=== PATIENT | male | born 1950 | race Caucasian/White ===

== ENCOUNTER 2017-12-04 17:58 | Inpatient (IN) ==
[2017-12-05] MEDS: *HR* Metformin 500 MG TABLET PO SCH (17:24)
[2017-12-05] MEDS ORDERED: *HR* Dextrose 50 % in Water (Syg) 50 ML SYRINGE IVP PRN (17:45)
[2017-12-05] MEDS ORDERED: Dextrose Gel 15 GM/37.5 ML TUBE PO PRN ×2 (17:45)
[2017-12-05] MEDS ORDERED: D5% in Water 1,000 ML IVC PRN (17:45)
[2017-12-05] MEDS: *HR* OxyCODONE/APAP 7.5/325 TABLET PO PRN (18:50)
[2017-12-05] MEDS: amLODIPine 5 MG TABLET PO SCH (21:55)
[2017-12-05] MEDS: Gabapentin 400 MG CAPSULE PO SCH (21:56)
[2017-12-05] MEDS: Insulin LISPRO 300 UNITS/3 ML VIAL SQ SCH (21:58)
[2017-12-05] MEDS: DOXYLAMINE 25 MG PO SCH (22:02)
[2017-12-06] MEDS: *HR* OxyCODONE/APAP 7.5/325 TABLET PO PRN ×2 (03:23→18:31)
[2017-12-06] MEDS: Multivit/Ca/Min/Fe/FA 1 TAB TABLET PO SCH (08:33)
[2017-12-06] MEDS: *HR* Metformin 500 MG TABLET PO SCH ×2 (08:33→16:56)
[2017-12-06] MEDS: Metoprolol XL (24 HR) Succ 50 MG TAB.ER.24H PO SCH (08:33)
[2017-12-06] MEDS: Gabapentin 400 MG CAPSULE PO SCH ×3 (08:34→20:33)
[2017-12-06] MEDS: OCUVITE PO SCH (08:35)
[2017-12-06] MEDS: EXENATIDE SQ SCH (08:35)
[2017-12-06] MEDS: Psyllium 1 PACKET POWD.PACK PO SCH (08:36)
[2017-12-06] MEDS: FISH OIL PO SCH (08:37)
[2017-12-06] MEDS: OMEGA PO SCH (08:37)
[2017-12-06] MEDS: Insulin LISPRO 300 UNITS/3 ML VIAL SQ SCH ×4 (08:40→20:34)
[2017-12-06] MEDS ORDERED: Aspirin Enteric Coated 325 MG Tablet PO SCH (09:00)
[2017-12-06] MEDS ORDERED: *HR* FentaNYL PATCH 12 MCG PATCH TD SCH (15:45)
--- NOTE | 2017-12-06 15:53 | Internal Med History&Physical ---
Date of Encounter: 12/06/17 Time of Encounter: 15:00 Assessment and Plan (1) Status post lumbar spinal fusion Current visit: No Status: Acute Continue PT and OT ongoing intervention. (2) Anemia Current visit: Yes Status: Acute Will check anemia testing in a.m. Qualifiers: Anemia type: unspecified type Qualified Code(s): D64.9 - Anemia, unspecified (3) DM type 2 (diabetes mellitus, type 2) Current visit: Yes Status: Chronic Qualifiers: Diabetes mellitus manager long term care insulin use: without nursing home use Diabetes mellitus complication status: without complication Qualified Code(s): E11.9 - Type 2 diabetes mellitus without complications (4) Dysphagia Current visit: Yes Status: Acute Will ask for speech/swallowing therapy evaluation. Qualifiers: Dysphagia type: unspecified Qualified Code(s): R13.10 - Dysphagia, unspecified (5) HTN (hypertension) Current visit: No Status: Chronic Continue Cozaar, Norvasc, and Toprol with blood pressure monitoring. Qualifiers: Hypertension type: essential hypertension Qualified Code(s): I10 - Essential (primary) hypertension Internal Medicine - H&P: HPI Chief complaint: Lumbar surgery Admitted From: Hospital to Hospital Transfer Plans for Post Hospital Care: Home History of present illness: Mr. Herrera is a 67 year old male who was transferred to [facility] swing bed after a December 01 hospitalization at [facility] where laminectomy and lumbar interbody fusion L2-L5 was performed. He had confusion and fluctuating blood pressures postoperatively. He was stabilized and admitted to [facility] swing bed for ongoing care needs. His orthopedic history is significant for left total hip replacement ~2004, left total knee replacement 1999, right shoulder surgery, bilateral carpal tunnel surgery, and foot surgery. He denies gout or other definite bone joint or muscle disorders. Past Med Surg Social Fam HX - Past Medical History Medical history: arthritis, diabetes, GERD, hyperlipidemia, hypertension, TIA Additional medical history: Osteoporosis. Lumbar Disc Dx and radiculopathy. Diverticulitis. BCC. Stroke 2017 left side Psychiatric history: no psych history - Past Surgical History Surgical History: hip replacement, knee replacement, orthopedic, other Additional surgical history: left hip replacement 2009. left knee replacement 1999. right foot bone chip 2004. left rotator cuff repaired 2005. mohs procedure performed [facility] right lateral cheek/right nasal sidewall 05/08/16 - Social History Smoking Status: Unknown if ever smoked Smokeless Tobacco Status: No Alcohol use: none Drug use: none - Family History Father Living Status: Mother Living Status: Hx Family Endocrine Disorder: Yes Internal Medicine - H&P: Meds Amlodipine Besylate 10 mg PO HS 05/14/16 [History] Aspirin [Ecotrin] 325 mg PO DAILY 05/14/16 [History] Atorvastatin Calcium 80 mg PO HS 05/14/16 [History] Cyclobenzaprine [Flexeril] 10 mg PO TID PRN 05/14/16 [History] Docusate [Colace] 100 mg PO BID PRN 05/14/16 [History] Doxylamine Succinate [Sleep Aid] 25 mg PO HS 05/14/16 [History] Exenatide Microspheres [Bydureon] 2 mg SQ SA 05/14/16 [History] Losartan Potassium [Cozaar] 100 mg PO DAILY 05/14/16 [History] Meloxicam [Mobic] 15 mg PO DAILY 05/14/16 [History] Metformin HCl [Glucophage] 1,000 mg PO BID 05/14/16 [History] Metoprolol XL (24 HR) Succ [Toprol Xl] 50 mg PO DAILY 05/14/16 [History] Multivitamin [Multi-Day Vitamins] 1 tab PO DAILY 05/14/16 [History] Omeprazole [PriLOSEC] 20 mg PO DAILY 05/14/16 [History] Oxycodone HCl/Acetaminophen [Percocet 7.5-325 mg Tablet] 1 tab PO Q6H PRN [History] Psyllium Husk [Fiber] 0.52 gm PO DAILY 05/14/16 [History] Vit C/Vit E/Lutein/Min/[place]-3 [Ocuvite Softgel] 1 tab PO DAILY 05/14/16 [ History] Amitriptyline [Elavil] 25 mg PO HS 12/01/17 [History] Calcium Carbonate [Calcium] 1,200 mg PO DAILY 12/01/17 [History] Gabapentin [Neurontin] 800 mg PO TID 12/01/17 [History] [place]-3/Dha/Epa/Fish Oil [Fish Oil 1,000 mg Softgel] 1 cap PO DAILY 12/01/17 [ History] OxyCODONE/APAP 7.5/325 [Percocet 7.5/325 MG] 1 each PO Q6HR PRN 7 Days #28 tablet 12/04/17 [Rx] 3 Allergy/AdvReac Type Severity Reaction Status Date / Time No Known Allergies Allergy Verified 12/01/17 07:57 All Systems PM: A 10-system review of systems was performed and is negative for pertinent findings except as documented above in the HPI. Review of systems: Gen.: His weight has increased from 88.961 kg in 06/22/2017 to 93.8 kg at present. Cardiovascular: He has history of hypertension but no VT heart failure angina DVT or pulmonary embolus Respiratory: He is a lifelong nonsmoker and has no known chronic lung disease GI: He has no known disorders of liver gallbladder or exocrine pancreas : No history of hematuria dysuria or kidney stones Neurologic: He had a "TIA" May 2017 and was hospitalized overnight at [facility]. Evaluation included carotid Doppler studies echocardiogram head CT and MRI. No significant pathology was seen on the studies. He was discharged home on antiplatelet regimen. His reports he has never had full recovery and has persistent slight impairment of speech, swallowing, memory, and walking. He does not use a cane or walker routinely. He has not had seizures. Endocrine: He was diagnosed with DM 2 approximately 2002. He denies thyroid disease or hyperlipidemia Hematology/oncology: He has had anemia on labs since May 2017 when he was started on aspirin therapy following his TIA. He denies internal malignancies Psychiatric: He denies anxiety depression or other mental health issues Musko skeletal: As per history of present illness - Constitutional Vitals: Temp Pulse Resp BP Pulse Ox 98.0 F 114 16 128/73 95 12/06/17 06:56 12/06/17 06:56 12/06/17 06:56 12/06/17 06:56 12/06/17 06:56 Exam: Gen.: He is a well-developed well-nourished male resting lying in bed who appears in mild to moderate pain. He has frequent body position changes and grimaces. HEENT: Head is atraumatic and normal cephalic. Eyes: EOMI. There is no scleral icterus. Mouth: Mucosa is moist. Neck: Supple and nontender. There is no thyromegaly or adenopathy noted. Heart: Regular without murmurs gallops or ectopics. Rate is approximately 104/ m. Lungs: No wheezes or crackles are heard. Abdomen: Soft and nontender. No masses or guarding noted. Extremities: There is no cyanosis. He is wearing PLACIDO hose which I did not remove. There is no pitting edema of his lower legs. Neurologic: Mental status: He is able to answer questions with appropriate answers. He has occasional word searching during conversation. Cranial nerves : Smile is symmetric. Forehead wrinkles bilaterally. Tongue protrudes midline. EOMI. Motor: He has difficulty raising his arms off the bed complaints of shoulder pain. He has some hyperextension of fingers on his right hand. Cerebellar: Finger to nose is intact bilaterally. Back: He has surgical dressing over lower midline incision site. No significant erythema or drainage is noted. Skin: Warm and dry.
[2017-12-06] MEDS: Aspirin Enteric Coated 81 MG Tablet PO SCH (16:56)
[2017-12-06] MEDS: Methyl Salicylate/Menthol 28 GM TUBE TP SCH (16:59)
[2017-12-06] MEDS: amLODIPine 5 MG TABLET PO SCH (20:33)
[2017-12-06] MEDS: DOXYLAMINE 25 MG PO SCH (20:39)
[2017-12-07 06:50] LABS: Basophils % 0.2 %; Eosinophils # 0.5 K/mcL (0.0-0.6); Hematocrit 27.2 % (37.5-50.1); Hemoglobin 8.9 g/dL (12.9-16.9); Immature Granulocytes % 0.4 % (0-4); Lymphocytes # 0.9 K/mcL (0.6-4.6); Lymphocytes % 10.5 %; Mean Corpuscular HGB Conc 32.7 g/dL (31.6-35.5); Mean Corpuscular Hemoglobin 29.3 pg (28.0-33.3); Mean Corpuscular Volume 89.5 fL (83.0-100.0); Mean Platelet Volume 9.6 fL (9.4-12.4); Monocytes # 0.8 K/mcL (0.0-1.3); Monocytes % 9.5 %; Platelet Count 245 K/mcL (140-400); Red Blood Count 3.04 M/mcL (4.19-5.50); Red Cell Distribution Width 15.3 % (11.5-14.5); Segmented Neutrophils % 73.4 %
[2017-12-07 07:20] LABS: Alanine Aminotransferase 93 Units/L (7-52); Albumin 3.2 g/dL (3.5-5.7); Albumin/Globulin Ratio 0.9 (1.1-2.2); Alkaline Phosphatase 84 Units/L (34-104); Aspartate Amino Transferase 83 Units/L (13-39); BUN/Creatinine Ratio 20 (6-26); Bilirubin,Total 0.6 mg/dL (0.3-1.0); Blood Urea Nitrogen 15 mg/dL (8-23); Calcium 9.2 mg/dL (8.6-10.3); Carbon Dioxide 27 mEq/L (23-29); Chloride 98 mEq/L (98-107); Globulin 3.4 g/dL (2.4-3.5); Glucose 220 mg/dL (70-105); Magnesium 1.9 mg/dL (1.6-2.6); Osmolality,Calculated 288 (280-300); Potassium 3.3 mEq/L (3.5-5.1); Sodium 135 mEq/L (136-145); Total Protein 6.6 g/dL (6.4-8.9); Uric Acid 4.1 mg/dL (2.3-7.6); eGFR For African Americans > 60 (> 60); eGFR For Non-African Americans > 60 (> 60)
[2017-12-07] MEDS: Gabapentin 400 MG CAPSULE PO SCH ×3 (08:29→20:45)
[2017-12-07] MEDS: *HR* OxyCODONE/APAP 7.5/325 TABLET PO PRN ×2 (08:30→18:03)
[2017-12-07] MEDS: *HR* Metformin 500 MG TABLET PO SCH ×2 (08:30→18:03)
[2017-12-07] MEDS: Multivit/Ca/Min/Fe/FA 1 TAB TABLET PO SCH (08:30)
[2017-12-07] MEDS: Aspirin Enteric Coated 81 MG Tablet PO SCH (08:31)
[2017-12-07] MEDS: Psyllium 1 PACKET POWD.PACK PO SCH (08:31)
[2017-12-07] MEDS: Metoprolol XL (24 HR) Succ 50 MG TAB.ER.24H PO SCH (08:31)
[2017-12-07] MEDS: Insulin LISPRO 300 UNITS/3 ML VIAL SQ SCH ×3 (08:43→18:04)
[2017-12-07 10:21] LABS: % Iron Saturation 4 % (20-55); Iron 11 mcg/dL (65-175); Transferrin 187 mg/dL (203-362)
[2017-12-07 10:41] LABS: Ferritin 167 ng/mL (20-250)
[2017-12-07 10:46] LABS: Folate 20.7 ng/mL (3.0-16.0)
[2017-12-07] MEDS: OMEGA PO SCH (11:37)
[2017-12-07] MEDS: OCUVITE PO SCH (11:37)
[2017-12-07] MEDS: FISH OIL PO SCH (11:37)
[2017-12-07] MEDS: Methyl Salicylate/Menthol 28 GM TUBE TP SCH (11:46)
--- NOTE | 2017-12-07 15:15 | Internal Med Progress Note ---
Date of Encounter: 12/07/17 Time of Encounter: 15:05 - Assessment and plan (1) Status post lumbar spinal fusion Current Visit: No Status: Acute Assessment and plan: December 07. Continue therapy interventions. Continue present analgesic regimen. (2) Anemia Current Visit: Yes Status: Acute Assessment and plan: December 07. Anemia testing showed iron 11, transferrin saturation 4%, transferrin 187, ferritin 167, B12 440, and folate 20.7. Will order oral ferrous sulfate with vitamin C. Qualifiers: Anemia type: unspecified type Qualified Code(s): D64.9 - Anemia, unspecified (3) DM type 2 (diabetes mellitus, type 2) Current Visit: Yes Status: Chronic Assessment and plan: December 07. Hemoglobin A1c was 8.7% on 11/25/2017. Continue Glucophage and Accu- Cheks with SSI. Qualifiers: Diabetes mellitus compliance auditor insulin use: without nursing home use Diabetes mellitus complication status: without complication Qualified Code(s): E11.9 - Type 2 diabetes mellitus without complications (4) Dysphagia Current Visit: Yes Status: Acute Assessment and plan: December 07. Speech/swallowing therapy evaluation ordered. Qualifiers: Dysphagia type: unspecified Qualified Code(s): R13.10 - Dysphagia, unspecified (5) HTN (hypertension) Current Visit: No Status: Chronic Assessment and plan: December 07. Blood pressure stable. Continue Cozaar, Norvasc, and Toprol. Qualifiers: Hypertension type: essential hypertension Qualified Code(s): I10 - Essential (primary) hypertension - Subjective Interval history: December 07. He has no new complaints. He states his pain has significantly lessened. - Constitutional Vitals: Temp Pulse Resp BP Pulse Ox 98.1 F 55 16 141/85 92 12/07/17 06:57 12/07/17 06:57 12/07/17 06:57 12/07/17 06:57 12/07/17 06:57 Exam: He is sitting in a chair at bedside resting comfortably. He appears in no acute distress. His affect is cheerful. I reviewed his medications and lab results. Internal Medicine: Result - Labs CBC & Chem 7: 12/07/17 06:03 12/07/17 06:03 Labs: Short CBC 12/07/17 Range/Units 06:03 WBC 8.1 (4.3-11.1) K/mcL Hgb 8.9 L (12.9-16.9) g/dL Hct 27.2 L (37.5-50.1) % Plt Count 245 (140-400) K/mcL Neutrophils # 6.0 (1.6-8.9) K/mcL BMP 12/07/17 06:03 Sodium 135 L Potassium 3.3 L Chloride 98 Carbon Dioxide 27 BUN 15 Creatinine 0.75 Glucose 220 H Calcium 9.2 Liver Function 12/07/17 Range/Units 06:03 Total Bilirubin 0.6 (0.3-1.0) mg/dL AST 83 H (13-39) Units/L ALT 93 H (7-52) Units/L Alkaline Phosphatase 84 (34-104) Units/L Albumin 3.2 L (3.5-5.7) g/dL - VTE Documentation of Mechanical Device: Graduated compression elastic hosiery Consult Discharge Plan - Plan Referrals: Cherelle Li [Primary Care Provider] - 1 week
[2017-12-07] MEDS: DOXYLAMINE 25 MG PO SCH (20:45)
[2017-12-07] MEDS: amLODIPine 5 MG TABLET PO SCH (20:45)
[2017-12-08] MEDS: Insulin LISPRO 300 UNITS/3 ML VIAL SQ SCH ×5 (06:26→22:33)
[2017-12-08] MEDS: Ascorbic Acid 500 MG TABLET PO SCH (06:28)
[2017-12-08] MEDS: *HR* Metformin 500 MG TABLET PO SCH ×2 (08:31→16:50)
[2017-12-08] MEDS: Metoprolol XL (24 HR) Succ 50 MG TAB.ER.24H PO SCH (08:32)
[2017-12-08] MEDS: Aspirin Enteric Coated 81 MG Tablet PO SCH (08:32)
[2017-12-08] MEDS: Psyllium 1 PACKET POWD.PACK PO SCH (08:33)
[2017-12-08] MEDS: Multivit/Ca/Min/Fe/FA 1 TAB TABLET PO SCH (08:33)
[2017-12-08] MEDS: *HR* OxyCODONE/APAP 7.5/325 TABLET PO PRN ×3 (08:33→22:31)
[2017-12-08] MEDS: Gabapentin 400 MG CAPSULE PO SCH ×3 (08:33→22:32)
[2017-12-08] MEDS: Methyl Salicylate/Menthol 28 GM TUBE TP SCH (12:14)
[2017-12-08] MEDS: OCUVITE PO SCH (16:52)
[2017-12-08] MEDS: FISH OIL PO SCH (16:52)
[2017-12-08] MEDS: OMEGA PO SCH (16:52)
--- NOTE | 2017-12-08 18:25 | Internal Med Progress Note ---
Date of Encounter: 12/08/17 Time of Encounter: 18:15 - Assessment and plan (1) Status post lumbar spinal fusion Current Visit: No Status: Acute Assessment and plan: December 07. Continue therapy interventions. Continue present analgesic regimen. July 10. Will increase Duragesic to 25 g/hour patch. Continue analgesic regimen otherwise as at present. (2) Anemia Current Visit: Yes Status: Acute Assessment and plan: December 07. Anemia testing showed iron 11, transferrin saturation 4%, transferrin 187, ferritin 167, B12 440, and folate 20.7. Will order oral ferrous sulfate with vitamin C. Qualifiers: Anemia type: unspecified type Qualified Code(s): D64.9 - Anemia, unspecified (3) DM type 2 (diabetes mellitus, type 2) Current Visit: Yes Status: Chronic Assessment and plan: December 07. Hemoglobin A1c was 8.7% on 11/25/2017. Continue Glucophage and Accu- Cheks with SSI. December 08. Blood sugars are above desirable range. Will add Amaryl. Qualifiers: Diabetes mellitus longterm insulin use: without longterm use Diabetes mellitus complication status: without complication Qualified Code(s): E11.9 - Type 2 diabetes mellitus without complications (4) Dysphagia Current Visit: Yes Status: Acute Assessment and plan: December 07. Speech/swallowing therapy evaluation ordered. December 08. Swallowing therapy recommended mechanical soft diet with thin liquids. Qualifiers: Dysphagia type: unspecified Qualified Code(s): R13.10 - Dysphagia, unspecified (5) HTN (hypertension) Current Visit: No Status: Chronic Assessment and plan: December 07. Blood pressure stable. Continue Cozaar, Norvasc, and Toprol. Qualifiers: Hypertension type: essential hypertension Qualified Code(s): I10 - Essential (primary) hypertension - Subjective Interval history: December 07. He has no new complaints. He states his pain has significantly lessened. July 10. He has no new complaints. He states his pain has slightly increased. - Constitutional Vitals: Temp Pulse Resp BP Pulse Ox 99.8 F H 118 16 143/87 95 12/08/17 06:00 12/08/17 06:00 12/08/17 06:00 12/08/17 06:00 12/08/17 06:00 Exam: He is sitting in a chair at bedside and appears in mild discomfort. His affect is overall cheerful. I reviewed his medications. I reviewed pertinent lab results with him and his . Internal Medicine: Result - Labs CBC & Chem 7: 12/07/17 06:03 12/07/17 06:03 - VTE Documentation of Mechanical Device: Graduated compression elastic hosiery Consult Discharge Plan - Plan Referrals: Cherelle Li [Primary Care Provider] - 1 week
[2017-12-08] MEDS: amLODIPine 5 MG TABLET PO SCH (22:32)
[2017-12-08] MEDS: DOXYLAMINE 25 MG PO SCH (22:34)
[2017-12-08] MEDS: *HR* FentaNYL PATCH 25 MCG PATCH TD SCH (22:38)
[2017-12-09 05:58] LABS: Basophils % 0.3 %; Eosinophils # 0.6 K/mcL (0.0-0.6); Eosinophils % 8.1 %; Hemoglobin 8.6 g/dL (12.9-16.9); Immature Granulocytes % 0.7 % (0-4); Lymphocytes # 0.9 K/mcL (0.6-4.6); Lymphocytes % 13.8 %; Mean Corpuscular HGB Conc 31.9 g/dL (31.6-35.5); Mean Corpuscular Hemoglobin 28.8 pg (28.0-33.3); Mean Corpuscular Volume 90.3 fL (83.0-100.0); Mean Platelet Volume 9.4 fL (9.4-12.4); Monocytes # 0.8 K/mcL (0.0-1.3); Monocytes % 11.2 %; Neutrophils # 4.5 K/mcL (1.6-8.9); Platelet Count 281 K/mcL (140-400); Red Blood Count 2.99 M/mcL (4.19-5.50); Red Cell Distribution Width 15.2 % (11.5-14.5); Segmented Neutrophils % 65.9 %
[2017-12-09 06:17] LABS: BUN/Creatinine Ratio 24 (6-26); Blood Urea Nitrogen 20 mg/dL (8-23); Calcium 8.9 mg/dL (8.6-10.3); Carbon Dioxide 28 mEq/L (23-29); Chloride 99 mEq/L (98-107); Glucose 223 mg/dL (70-105); Osmolality,Calculated 290 (280-300); Potassium 3.7 mEq/L (3.5-5.1); Sodium 135 mEq/L (136-145); eGFR For African Americans > 60 (> 60); eGFR For Non-African Americans > 60 (> 60)
[2017-12-09] MEDS: Ascorbic Acid 500 MG TABLET PO SCH (06:39)
[2017-12-09] MEDS: Insulin LISPRO 300 UNITS/3 ML VIAL SQ SCH ×4 (08:48→21:34)
[2017-12-09] MEDS: Aspirin Enteric Coated 81 MG Tablet PO SCH (08:50)
[2017-12-09] MEDS: Metoprolol XL (24 HR) Succ 50 MG TAB.ER.24H PO SCH (08:50)
[2017-12-09] MEDS: *HR* OxyCODONE/APAP 7.5/325 TABLET PO PRN (08:50)
[2017-12-09] MEDS: Gabapentin 400 MG CAPSULE PO SCH ×3 (08:50→21:33)
[2017-12-09] MEDS: Psyllium 1 PACKET POWD.PACK PO SCH (08:50)
[2017-12-09] MEDS: Multivit/Ca/Min/Fe/FA 1 TAB TABLET PO SCH (08:50)
[2017-12-09] MEDS: *HR* Glimepiride 2 MG TABLET PO SCH (08:50)
[2017-12-09] MEDS: *HR* Metformin 500 MG TABLET PO SCH ×2 (08:50→17:31)
[2017-12-09] MEDS: Methyl Salicylate/Menthol 28 GM TUBE TP SCH (08:51)
[2017-12-09] MEDS: OMEGA PO SCH (09:05)
[2017-12-09] MEDS: OCUVITE PO SCH (09:05)
[2017-12-09] MEDS: FISH OIL PO SCH (09:05)
[2017-12-09] MEDS: amLODIPine 5 MG TABLET PO SCH (21:31)
[2017-12-09] MEDS: DOXYLAMINE 25 MG PO SCH (21:36)
[2017-12-10] MEDS: Ascorbic Acid 500 MG TABLET PO SCH (06:28)
[2017-12-10] MEDS: *HR* OxyCODONE/APAP 7.5/325 TABLET PO PRN ×3 (06:28→21:32)
[2017-12-10] MEDS: Multivit/Ca/Min/Fe/FA 1 TAB TABLET PO SCH (09:23)
[2017-12-10] MEDS: *HR* Metformin 500 MG TABLET PO SCH ×2 (09:24→17:20)
[2017-12-10] MEDS: *HR* Glimepiride 2 MG TABLET PO SCH (09:24)
[2017-12-10] MEDS: Metoprolol XL (24 HR) Succ 50 MG TAB.ER.24H PO SCH (09:24)
[2017-12-10] MEDS: Aspirin Enteric Coated 81 MG Tablet PO SCH (09:24)
[2017-12-10] MEDS: Gabapentin 400 MG CAPSULE PO SCH ×3 (09:25→21:32)
[2017-12-10] MEDS: Psyllium 1 PACKET POWD.PACK PO SCH (09:26)
[2017-12-10] MEDS: Methyl Salicylate/Menthol 28 GM TUBE TP SCH (09:28)
[2017-12-10] MEDS: Insulin LISPRO 300 UNITS/3 ML VIAL SQ SCH ×4 (09:29→21:36)
[2017-12-10] MEDS: OMEGA PO SCH (17:27)
[2017-12-10] MEDS: FISH OIL PO SCH (17:27)
[2017-12-10] MEDS: OCUVITE PO SCH (17:27)
--- NOTE | 2017-12-10 17:36 | Internal Med Progress Note ---
Date of Encounter: 12/10/17 Time of Encounter: 17:25 - Assessment and plan (1) Status post lumbar spinal fusion Current Visit: No Status: Acute Assessment and plan: December 07. Continue therapy interventions. Continue present analgesic regimen. July 10. Will increase Duragesic to 25 g/hour patch. Continue analgesic regimen otherwise as at present. (2) Anemia Current Visit: Yes Status: Acute Assessment and plan: December 07. Anemia testing showed iron 11, transferrin saturation 4%, transferrin 187, ferritin 167, B12 440, and folate 20.7. Will order oral ferrous sulfate with vitamin C. December 10. Hemoglobin decreased to 8.6 yesterday. Will recheck labs in a.m. Qualifiers: Anemia type: unspecified type Qualified Code(s): D64.9 - Anemia, unspecified (3) DM type 2 (diabetes mellitus, type 2) Current Visit: Yes Status: Chronic Assessment and plan: December 07. Hemoglobin A1c was 8.7% on 11/25/2017. Continue Glucophage and Accu- Cheks with SSI. December 08. Blood sugars are above desirable range. Will add Amaryl. December 10. Blood sugars improved. Continue Glucophage and Amaryl. Qualifiers: Diabetes mellitus half-way insulin use: without half-way use Diabetes mellitus complication status: without complication Qualified Code(s): E11.9 - Type 2 diabetes mellitus without complications (4) Dysphagia Current Visit: Yes Status: Acute Assessment and plan: December 07. Speech/swallowing therapy evaluation ordered. December 08. Swallowing therapy recommended mechanical soft diet with thin liquids. Qualifiers: Dysphagia type: unspecified Qualified Code(s): R13.10 - Dysphagia, unspecified (5) HTN (hypertension) Current Visit: No Status: Chronic Assessment and plan: December 07. Blood pressure stable. Continue Cozaar, Norvasc, and Toprol. December 09. Blood pressures stable. However because of tachycardia will decrease Cozaar and increase Toprol. Continue Norvasc. Qualifiers: Hypertension type: essential hypertension Qualified Code(s): I10 - Essential (primary) hypertension - Subjective Interval history: December 07. He has no new complaints. He states his pain has significantly lessened. December 08. He has no new complaints. He states his pain has slightly increased. December 10. He has no new complaints. He does not feel his pain has significantly changed. - Constitutional Vitals: Temp Pulse Resp BP Pulse Ox 99.0 F 113 17 117/68 99 12/09/17 19:19 12/09/17 19:19 12/09/17 19:19 12/09/17 19:19 12/09/17 21:35 Exam: He is resting comfortably in bed. His affect is overall cheerful. Heart is regular with rate approximately 108/m. Lungs are clear anteriorly. Extremities show no edema. I reviewed his medications and lab results. Internal Medicine: Result - Labs CBC & Chem 7: 12/09/17 05:30 12/09/17 05:30 - VTE Documentation of Mechanical Device: Graduated compression elastic hosiery Consult Discharge Plan - Plan Referrals: Cherelle Li [Primary Care Provider] - 1 week
[2017-12-10] MEDS: amLODIPine 5 MG TABLET PO SCH (21:32)
[2017-12-10] MEDS: DOXYLAMINE 25 MG PO SCH (21:34)
[2017-12-11] MEDS: Ascorbic Acid 500 MG TABLET PO SCH (06:16)
[2017-12-11 07:23] LABS: Basophils % 0.4 %; Eosinophils # 0.4 K/mcL (0.0-0.6); Eosinophils % 5.1 %; Hematocrit 29.4 % (37.5-50.1); Hemoglobin 9.4 g/dL (12.9-16.9); Immature Granulocytes % 1.3 % (0-4); Lymphocytes % 12.9 %; Mean Corpuscular Hemoglobin 29.2 pg (28.0-33.3); Mean Corpuscular Volume 91.3 fL (83.0-100.0); Mean Platelet Volume 9.6 fL (9.4-12.4); Monocytes # 0.8 K/mcL (0.0-1.3); Monocytes % 10.8 %; Neutrophils # 5.4 K/mcL (1.6-8.9); Platelet Count 345 K/mcL (140-400); Red Blood Count 3.22 M/mcL (4.19-5.50); Red Cell Distribution Width 14.7 % (11.5-14.5); Segmented Neutrophils % 69.5 %
[2017-12-11] MEDS: Aspirin Enteric Coated 81 MG Tablet PO SCH (08:16)
[2017-12-11] MEDS: Methyl Salicylate/Menthol 28 GM TUBE TP SCH (08:16)
[2017-12-11] MEDS: *HR* Metformin 500 MG TABLET PO SCH ×2 (08:17→16:05)
[2017-12-11] MEDS: Metoprolol XL (24 HR) Succ 50 MG TAB.ER.24H PO SCH (08:17)
[2017-12-11] MEDS: *HR* Glimepiride 2 MG TABLET PO SCH (08:17)
[2017-12-11] MEDS: Multivit/Ca/Min/Fe/FA 1 TAB TABLET PO SCH (08:17)
[2017-12-11] MEDS: Gabapentin 400 MG CAPSULE PO SCH ×3 (08:17→21:32)
[2017-12-11] MEDS: Insulin LISPRO 300 UNITS/3 ML VIAL SQ SCH ×4 (08:21→21:34)
[2017-12-11] MEDS: OMEGA PO SCH (08:22)
[2017-12-11] MEDS: FISH OIL PO SCH (08:22)
[2017-12-11] MEDS: OCUVITE PO SCH (08:22)
[2017-12-11] MEDS: Psyllium 1 PACKET POWD.PACK PO SCH (08:22)
[2017-12-11] MEDS: *HR* OxyCODONE/APAP 7.5/325 TABLET PO PRN ×2 (09:33→21:40)
[2017-12-11] MEDS: *HR* FentaNYL PATCH 25 MCG PATCH TD SCH (18:36)
[2017-12-11] MEDS: amLODIPine 5 MG TABLET PO SCH (21:32)
[2017-12-11] MEDS: DOXYLAMINE 25 MG PO SCH (21:37)
[2017-12-12] MEDS: Ascorbic Acid 500 MG TABLET PO SCH (06:36)
[2017-12-12] MEDS: *HR* OxyCODONE/APAP 7.5/325 TABLET PO PRN ×3 (06:36→20:16)
[2017-12-12] MEDS: *HR* Metformin 500 MG TABLET PO SCH ×2 (08:32→17:40)
[2017-12-12] MEDS: Aspirin Enteric Coated 81 MG Tablet PO SCH (08:32)
[2017-12-12] MEDS: Psyllium 1 PACKET POWD.PACK PO SCH (08:32)
[2017-12-12] MEDS: Multivit/Ca/Min/Fe/FA 1 TAB TABLET PO SCH (08:32)
[2017-12-12] MEDS: Metoprolol XL (24 HR) Succ 50 MG TAB.ER.24H PO SCH (08:32)
[2017-12-12] MEDS: *HR* Glimepiride 2 MG TABLET PO SCH (08:33)
[2017-12-12] MEDS: Gabapentin 400 MG CAPSULE PO SCH ×3 (08:33→20:15)
[2017-12-12] MEDS: Methyl Salicylate/Menthol 28 GM TUBE TP SCH (08:33)
[2017-12-12] MEDS: Insulin LISPRO 300 UNITS/3 ML VIAL SQ SCH ×4 (08:33→20:17)
[2017-12-12] MEDS: OCUVITE PO SCH (08:51)
[2017-12-12] MEDS: FISH OIL PO SCH (08:51)
[2017-12-12] MEDS: OMEGA PO SCH (08:51)
--- NOTE | 2017-12-12 16:07 | Internal Med Progress Note ---
Date of Encounter: 12/12/17 Time of Encounter: 16:00 - Assessment and plan (1) Status post lumbar spinal fusion Current Visit: No Status: Acute Assessment and plan: December 07. Continue therapy interventions. Continue present analgesic regimen. July 10. Will increase Duragesic to 25 g/hour patch. Continue analgesic regimen otherwise as at present. (2) Anemia Current Visit: Yes Status: Acute Assessment and plan: December 07. Anemia testing showed iron 11, transferrin saturation 4%, transferrin 187, ferritin 167, B12 440, and folate 20.7. Will order oral ferrous sulfate with vitamin C. December 10. Hemoglobin decreased to 8.6 yesterday. Will recheck labs in a.m. December 12. Hemoglobin increased to 9.4. Continue present regimen. Qualifiers: Anemia type: unspecified type Qualified Code(s): D64.9 - Anemia, unspecified (3) DM type 2 (diabetes mellitus, type 2) Current Visit: Yes Status: Chronic Assessment and plan: December 07. Hemoglobin A1c was 8.7% on 11/25/2017. Continue Glucophage and Accu- Cheks with SSI. December 08. Blood sugars are above desirable range. Will add Amaryl. December 10. Blood sugars improved. Continue Glucophage and Amaryl. December 12. Will increase Amaryl to better control blood sugars. Qualifiers: Diabetes mellitus residential insulin use: without residential use Diabetes mellitus complication status: without complication Qualified Code(s): E11.9 - Type 2 diabetes mellitus without complications (4) Dysphagia Current Visit: Yes Status: Acute Assessment and plan: December 07. Speech/swallowing therapy evaluation ordered. December 08. Swallowing therapy recommended mechanical soft diet with thin liquids. Qualifiers: Dysphagia type: unspecified Qualified Code(s): R13.10 - Dysphagia, unspecified (5) HTN (hypertension) Current Visit: No Status: Chronic Assessment and plan: December 07. Blood pressure stable. Continue Cozaar, Norvasc, and Toprol. December 09. Blood pressures stable. However because of tachycardia will decrease Cozaar and increase Toprol. Continue Norvasc. Qualifiers: Hypertension type: essential hypertension Qualified Code(s): I10 - Essential (primary) hypertension (6) Lacunar infarction Current Visit: Yes Status: Acute Assessment and plan: December 12. MRI 06/21/2017 showed mild bilateral white matter chronic small vessel ischemic changes. Will order speech eval for cognitive intervention assessment. - Subjective Interval history: December 07. He has no new complaints. He states his pain has significantly lessened. December 08. He has no new complaints. He states his pain has slightly increased. December 10. He has no new complaints. He does not feel his pain has significantly changed. December 12. He has no new complaints. - Constitutional Vitals: Temp Pulse Resp BP Pulse Ox 98.9 F 104 18 134/78 94 12/12/17 07:18 12/12/17 07:18 12/12/17 07:18 12/12/17 07:18 12/12/17 07:18 Exam: He is resting comfortably in bed and does not appear to be in pain. His affect is bright and cheerful. I reviewed his medications and lab results. Internal Medicine: Result - Labs CBC & Chem 7: 12/11/17 05:45 12/09/17 05:30 - VTE Documentation of Mechanical Device: Graduated compression elastic hosiery Consult Discharge Plan - Plan Referrals: Cherelle Li [Primary Care Provider] - 1 week
[2017-12-12] MEDS: amLODIPine 5 MG TABLET PO SCH (20:14)
[2017-12-12] MEDS: DOXYLAMINE 25 MG PO SCH (20:18)
[2017-12-13] MEDS: Ascorbic Acid 500 MG TABLET PO SCH (05:32)
[2017-12-13 05:37] LABS: Bilirubin,Urine Negative (Negative); Blood,Urine Negative (Negative); Clarity,Urine Clear (Clear); Color,Urine Yellow (Yellow); Glucose,Urine (UA) Normal (Normal); Ketones,Urine Negative (Negative); Leukocyte Esterase,Urine Negative (Negative); Nitrite,Urine Negative (Negative); Protein,Urine Negative (Neg-Trace); Specific Gravity,Urine 1.015 (1.010-1.025); Urobilinogen,Urine Normal (Normal)
[2017-12-13] MEDS: Multivit/Ca/Min/Fe/FA 1 TAB TABLET PO SCH (09:15)
[2017-12-13] MEDS: Metoprolol XL (24 HR) Succ 50 MG TAB.ER.24H PO SCH (09:15)
[2017-12-13] MEDS: *HR* Glimepiride 2 MG TABLET PO SCH (09:15)
[2017-12-13] MEDS: *HR* Metformin 500 MG TABLET PO SCH ×2 (09:15→17:20)
[2017-12-13] MEDS: Aspirin Enteric Coated 81 MG Tablet PO SCH (09:15)
[2017-12-13] MEDS: Methyl Salicylate/Menthol 28 GM TUBE TP SCH (09:16)
[2017-12-13] MEDS: Psyllium 1 PACKET POWD.PACK PO SCH (09:16)
[2017-12-13] MEDS: Gabapentin 400 MG CAPSULE PO SCH ×3 (09:16→20:03)
[2017-12-13] MEDS: EXENATIDE SQ SCH (09:16)
[2017-12-13] MEDS: FISH OIL PO SCH (09:17)
[2017-12-13] MEDS: OMEGA PO SCH (09:17)
[2017-12-13] MEDS: OCUVITE PO SCH (09:17)
[2017-12-13] MEDS: Insulin LISPRO 300 UNITS/3 ML VIAL SQ SCH ×4 (09:27→21:51)
[2017-12-13] MEDS: *HR* OxyCODONE/APAP 7.5/325 TABLET PO PRN ×2 (11:23→21:24)
[2017-12-13] MEDS: DOXYLAMINE 25 MG PO SCH (21:52)
[2017-12-13] MEDS: amLODIPine 5 MG TABLET PO SCH (21:54)
[2017-12-14] MEDS: *HR* OxyCODONE/APAP 7.5/325 TABLET PO PRN (04:55)
[2017-12-14] MEDS: Ascorbic Acid 500 MG TABLET PO SCH (04:55)
[2017-12-14] MEDS: Methyl Salicylate/Menthol 28 GM TUBE TP SCH (08:44)
[2017-12-14] MEDS: *HR* Glimepiride 2 MG TABLET PO SCH (08:45)
[2017-12-14] MEDS: Multivit/Ca/Min/Fe/FA 1 TAB TABLET PO SCH (08:45)
[2017-12-14] MEDS: Gabapentin 400 MG CAPSULE PO SCH ×3 (08:45→20:07)
[2017-12-14] MEDS: *HR* Metformin 500 MG TABLET PO SCH ×2 (08:45→20:13)
[2017-12-14] MEDS: Aspirin Enteric Coated 81 MG Tablet PO SCH (08:45)
[2017-12-14] MEDS: Insulin LISPRO 300 UNITS/3 ML VIAL SQ SCH ×4 (08:45→20:15)
[2017-12-14] MEDS: Psyllium 1 PACKET POWD.PACK PO SCH (08:45)
[2017-12-14] MEDS: Metoprolol XL (24 HR) Succ 50 MG TAB.ER.24H PO SCH (08:45)
[2017-12-14] MEDS: OCUVITE PO SCH (08:46)
[2017-12-14] MEDS: FISH OIL PO SCH (08:47)
[2017-12-14] MEDS: OMEGA PO SCH (08:47)
--- NOTE | 2017-12-14 10:50 | Internal Med Progress Note ---
Date of Encounter: 12/14/17 Time of Encounter: 10:35 - Assessment and plan (1) Status post lumbar spinal fusion Current Visit: No Status: Acute Assessment and plan: December 07. Continue therapy interventions. Continue present analgesic regimen. July 10. Will increase Duragesic to 25 g/hour patch. Continue analgesic regimen otherwise as at present. (2) Anemia Current Visit: Yes Status: Acute Assessment and plan: December 07. Anemia testing showed iron 11, transferrin saturation 4%, transferrin 187, ferritin 167, B12 440, and folate 20.7. Will order oral ferrous sulfate with vitamin C. December 10. Hemoglobin decreased to 8.6 yesterday. Will recheck labs in a.m. December 12. Hemoglobin increased to 9.4. Continue present regimen. Qualifiers: Anemia type: unspecified type Qualified Code(s): D64.9 - Anemia, unspecified (3) DM type 2 (diabetes mellitus, type 2) Current Visit: Yes Status: Chronic Assessment and plan: December 07. Hemoglobin A1c was 8.7% on 11/25/2017. Continue Glucophage and Accu- Cheks with SSI. December 08. Blood sugars are above desirable range. Will add Amaryl. December 10. Blood sugars improved. Continue Glucophage and Amaryl. December 12. Will increase Amaryl to better control blood sugars. December 14. Blood sugars better controlled. Continue present dose Amaryl and Glucophage Qualifiers: Diabetes mellitus intermediate card tender insulin use: without custodial use Diabetes mellitus complication status: without complication Qualified Code(s): E11.9 - Type 2 diabetes mellitus without complications (4) Dysphagia Current Visit: Yes Status: Acute Assessment and plan: December 07. Speech/swallowing therapy evaluation ordered. December 08. Swallowing therapy recommended mechanical soft diet with thin liquids. Qualifiers: Dysphagia type: unspecified Qualified Code(s): R13.10 - Dysphagia, unspecified (5) HTN (hypertension) Current Visit: No Status: Chronic Assessment and plan: December 07. Blood pressure stable. Continue Cozaar, Norvasc, and Toprol. December 09. Blood pressures stable. However because of tachycardia will decrease Cozaar and increase Toprol. Continue Norvasc. December 12. Blood pressure stable to borderline low. Will decrease Norvasc and increase Toprol. Qualifiers: Hypertension type: essential hypertension Qualified Code(s): I10 - Essential (primary) hypertension (6) Lacunar infarction Current Visit: Yes Status: Acute Assessment and plan: December 12. MRI 06/21/2017 showed mild bilateral white matter chronic small vessel ischemic changes. Will order speech eval for cognitive intervention assessment. December 14. Will order MMSE. - Subjective Interval history: December 07. He has no new complaints. He states his pain has significantly lessened. December 08. He has no new complaints. He states his pain has slightly increased. December 10. He has no new complaints. He does not feel his pain has significantly changed. December 12. He has no new complaints. December 14. He has no new complaints and states he feels better - Constitutional Vitals: Temp Pulse Resp BP Pulse Ox 98.2 F 101 16 118/73 96 12/14/17 06:45 12/14/17 06:45 12/14/17 06:45 12/14/17 06:45 12/14/17 06:45 Exam: He is resting comfortably in a chair at bedside and appears in no acute distress. His speech is appropriate in conversation but he seems to have underlying cognitive deficits. I reviewed his medications and lab results. Internal Medicine: Result - Labs CBC & Chem 7: 12/11/17 05:45 12/09/17 05:30 - VTE Documentation of Mechanical Device: Graduated compression elastic hosiery Consult Discharge Plan - Plan Referrals: Cherelle Li [Primary Care Provider] - 1 week
[2017-12-14] MEDS: amLODIPine 5 MG TABLET PO SCH ×2 (11:53→20:07)
[2017-12-14] MEDS: *HR* FentaNYL PATCH 25 MCG PATCH TD SCH (20:14)
[2017-12-14] MEDS: DOXYLAMINE 25 MG PO SCH (20:15)
[2017-12-15] MEDS: *HR* OxyCODONE/APAP 7.5/325 TABLET PO PRN ×3 (03:59→20:02)
[2017-12-15] MEDS: Ascorbic Acid 500 MG TABLET PO SCH (06:18)
[2017-12-15] MEDS: Gabapentin 400 MG CAPSULE PO SCH ×3 (08:17→20:01)
[2017-12-15] MEDS: Multivit/Ca/Min/Fe/FA 1 TAB TABLET PO SCH (08:17)
[2017-12-15] MEDS: Metoprolol XL (24 HR) Succ 50 MG TAB.ER.24H PO SCH (08:17)
[2017-12-15] MEDS: Aspirin Enteric Coated 81 MG Tablet PO SCH (08:18)
[2017-12-15] MEDS: *HR* Metformin 500 MG TABLET PO SCH ×2 (08:18→17:09)
[2017-12-15] MEDS: Psyllium 1 PACKET POWD.PACK PO SCH (08:18)
[2017-12-15] MEDS: *HR* Glimepiride 2 MG TABLET PO SCH (08:18)
[2017-12-15] MEDS: Insulin LISPRO 300 UNITS/3 ML VIAL SQ SCH ×4 (08:19→20:06)
[2017-12-15] MEDS: Methyl Salicylate/Menthol 28 GM TUBE TP SCH (08:25)
[2017-12-15] MEDS: OMEGA PO SCH (11:53)
[2017-12-15] MEDS: FISH OIL PO SCH (11:53)
[2017-12-15] MEDS: amLODIPine 5 MG TABLET PO SCH (20:02)
[2017-12-16] MEDS: *HR* OxyCODONE/APAP 7.5/325 TABLET PO PRN ×2 (01:53→08:07)
[2017-12-16] MEDS: Ascorbic Acid 500 MG TABLET PO SCH (05:32)
[2017-12-16 06:30] LABS: eGFR For African Americans > 60 (> 60); eGFR For Non-African Americans > 60 (> 60)
[2017-12-16] MEDS: Psyllium 1 PACKET POWD.PACK PO SCH (07:59)
[2017-12-16] MEDS: Metoprolol XL (24 HR) Succ 50 MG TAB.ER.24H PO SCH (07:59)
[2017-12-16] MEDS: Aspirin Enteric Coated 81 MG Tablet PO SCH (08:00)
[2017-12-16] MEDS: Gabapentin 400 MG CAPSULE PO SCH ×3 (08:00→20:25)
[2017-12-16] MEDS: *HR* Glimepiride 2 MG TABLET PO SCH (08:00)
[2017-12-16] MEDS: Insulin LISPRO 300 UNITS/3 ML VIAL SQ SCH ×4 (08:00→20:32)
[2017-12-16] MEDS: Multivit/Ca/Min/Fe/FA 1 TAB TABLET PO SCH (08:00)
[2017-12-16] MEDS: *HR* Metformin 500 MG TABLET PO SCH ×2 (08:00→16:21)
[2017-12-16] MEDS: Methyl Salicylate/Menthol 28 GM TUBE TP SCH (08:01)
[2017-12-16] MEDS: amLODIPine 5 MG TABLET PO SCH (20:25)
[2017-12-16] MEDS: traZODone 50 MG TABLET PO PRN (20:25)
[2017-12-17] MEDS: Ascorbic Acid 500 MG TABLET PO SCH (06:41)
[2017-12-17] MEDS: Insulin LISPRO 300 UNITS/3 ML VIAL SQ SCH ×4 (07:32→20:55)
[2017-12-17] MEDS: Multivit/Ca/Min/Fe/FA 1 TAB TABLET PO SCH (07:51)
[2017-12-17] MEDS: Methyl Salicylate/Menthol 28 GM TUBE TP SCH (07:51)
[2017-12-17] MEDS: Aspirin Enteric Coated 81 MG Tablet PO SCH (07:51)
[2017-12-17] MEDS: Gabapentin 400 MG CAPSULE PO SCH ×3 (07:51→20:54)
[2017-12-17] MEDS: *HR* Metformin 500 MG TABLET PO SCH ×2 (07:51→15:53)
[2017-12-17] MEDS: Metoprolol XL (24 HR) Succ 50 MG TAB.ER.24H PO SCH (07:51)
[2017-12-17] MEDS: Psyllium 1 PACKET POWD.PACK PO SCH (07:52)
[2017-12-17] MEDS: *HR* Glimepiride 2 MG TABLET PO SCH (07:52)
[2017-12-17] MEDS: *HR* FentaNYL PATCH 25 MCG PATCH TD SCH (18:15)
--- NOTE | 2017-12-17 18:33 | Internal Med Progress Note ---
Date of Encounter: 12/17/17 Time of Encounter: 18:25 - Assessment and plan (1) Status post lumbar spinal fusion Current Visit: No Status: Acute Assessment and plan: December 07. Continue therapy interventions. Continue present analgesic regimen. July 10. Will increase Duragesic to 25 g/hour patch. Continue analgesic regimen otherwise as at present. (2) Anemia Current Visit: Yes Status: Acute Assessment and plan: December 07. Anemia testing showed iron 11, transferrin saturation 4%, transferrin 187, ferritin 167, B12 440, and folate 20.7. Will order oral ferrous sulfate with vitamin C. December 10. Hemoglobin decreased to 8.6 yesterday. Will recheck labs in a.m. December 12. Hemoglobin increased to 9.4. Continue present regimen. December 17. Recheck labs in a.m. Qualifiers: Anemia type: unspecified type Qualified Code(s): D64.9 - Anemia, unspecified (3) DM type 2 (diabetes mellitus, type 2) Current Visit: Yes Status: Chronic Assessment and plan: December 07. Hemoglobin A1c was 8.7% on 11/25/2017. Continue Glucophage and Accu- Cheks with SSI. December 08. Blood sugars are above desirable range. Will add Amaryl. December 10. Blood sugars improved. Continue Glucophage and Amaryl. December 12. Will increase Amaryl to better control blood sugars. December 14. Blood sugars better controlled. Continue present dose Amaryl and Glucophage December 17. Blood sugars now well controlled. Continue present regimen. Qualifiers: Diabetes mellitus buttermaker continuous churn insulin use: without senior living use Diabetes mellitus complication status: without complication Qualified Code(s): E11.9 - Type 2 diabetes mellitus without complications (4) Dysphagia Current Visit: Yes Status: Acute Assessment and plan: December 07. Speech/swallowing therapy evaluation ordered. December 08. Swallowing therapy recommended mechanical soft diet with thin liquids. Qualifiers: Dysphagia type: unspecified Qualified Code(s): R13.10 - Dysphagia, unspecified (5) HTN (hypertension) Current Visit: No Status: Chronic Assessment and plan: December 07. Blood pressure stable. Continue Cozaar, Norvasc, and Toprol. December 09. Blood pressures stable. However because of tachycardia will decrease Cozaar and increase Toprol. Continue Norvasc. December 12. Blood pressure stable to borderline low. Will decrease Norvasc and increase Toprol. GEN 20. Blood pressure satisfactory but borderline tachycardia persists. Will discontinue Norvasc and increase Toprol. Qualifiers: Hypertension type: essential hypertension Qualified Code(s): I10 - Essential (primary) hypertension (6) Lacunar infarction Current Visit: Yes Status: Acute Assessment and plan: December 12. MRI 06/21/2017 showed mild bilateral white matter chronic small vessel ischemic changes. Will order speech eval for cognitive intervention assessment. December 14. Will order MMSE. December 17. MMSE score . - Subjective Interval history: December 07. He has no new complaints. He states his pain has significantly lessened. December 08. He has no new complaints. He states his pain has slightly increased. December 10. He has no new complaints. He does not feel his pain has significantly changed. December 12. He has no new complaints. December 14. He has no new complaints and states he feels better December 17. He has no new complaints. He feels he is making progress in therapy. - Constitutional Vitals: Temp Pulse Resp BP Pulse Ox 98.6 F 100 16 123/73 95 12/17/17 06:45 12/17/17 06:45 12/17/17 06:45 12/17/17 06:45 12/17/17 06:45 Exam: He is resting comfortably in bed and appears in no acute distress. He is wearing PLACIDO hose. There is no edema palpated through the PLACIDO hose. He does not appear to be in pain. I reviewed his medications and vital signs and past labs. Internal Medicine: Result - Labs CBC & Chem 7: 12/11/17 05:45 12/16/17 05:38 - VTE Documentation of Mechanical Device: Graduated compression elastic hosiery Consult Discharge Plan - Plan Referrals: Cherelle Li [Primary Care Provider] - 1 week
[2017-12-17] MEDS: traZODone 50 MG TABLET PO PRN (20:54)
[2017-12-17] MEDS: *HR* OxyCODONE/APAP 7.5/325 TABLET PO PRN (20:54)
[2017-12-18] MEDS: *HR* OxyCODONE/APAP 7.5/325 TABLET PO PRN ×3 (05:40→20:48)
[2017-12-18] MEDS: Ascorbic Acid 500 MG TABLET PO SCH (05:40)
[2017-12-18 06:11] LABS: Basophils % 0.5 %; Eosinophils # 0.3 K/mcL (0.0-0.6); Eosinophils % 4.9 %; Hematocrit 29.7 % (37.5-50.1); Hemoglobin 9.4 g/dL (12.9-16.9); Immature Granulocytes % 0.5 % (0-4); Lymphocytes # 0.9 K/mcL (0.6-4.6); Lymphocytes % 14.8 %; Mean Corpuscular HGB Conc 31.6 g/dL (31.6-35.5); Mean Corpuscular Hemoglobin 28.7 pg (28.0-33.3); Mean Corpuscular Volume 90.5 fL (83.0-100.0); Mean Platelet Volume 8.7 fL (9.4-12.4); Monocytes # 0.6 K/mcL (0.0-1.3); Monocytes % 10.7 %; Platelet Count 346 K/mcL (140-400); Red Blood Count 3.28 M/mcL (4.19-5.50); Red Cell Distribution Width 14.5 % (11.5-14.5); Segmented Neutrophils % 68.6 %
[2017-12-18 06:46] LABS: BUN/Creatinine Ratio 14 (6-26); Blood Urea Nitrogen 12 mg/dL (8-23); Calcium 8.7 mg/dL (8.6-10.3); Carbon Dioxide 28 mEq/L (23-29); Chloride 97 mEq/L (98-107); Glucose 202 mg/dL (70-105); Osmolality,Calculated 282 (280-300); Potassium 3.9 mEq/L (3.5-5.1); Sodium 133 mEq/L (136-145); eGFR For African Americans > 60 (> 60); eGFR For Non-African Americans > 60 (> 60)
[2017-12-18] MEDS: Insulin LISPRO 300 UNITS/3 ML VIAL SQ SCH ×4 (08:18→20:49)
[2017-12-18] MEDS: Metoprolol XL (24 HR) Succ 50 MG TAB.ER.24H PO SCH (08:20)
[2017-12-18] MEDS: *HR* Metformin 500 MG TABLET PO SCH ×2 (08:20→17:51)
[2017-12-18] MEDS: Methyl Salicylate/Menthol 28 GM TUBE TP SCH (08:20)
[2017-12-18] MEDS: Multivit/Ca/Min/Fe/FA 1 TAB TABLET PO SCH (08:21)
[2017-12-18] MEDS: Psyllium 1 PACKET POWD.PACK PO SCH (08:21)
[2017-12-18] MEDS: Gabapentin 400 MG CAPSULE PO SCH ×3 (08:21→20:49)
[2017-12-18] MEDS: Aspirin Enteric Coated 81 MG Tablet PO SCH (08:21)
[2017-12-18] MEDS: *HR* Glimepiride 2 MG TABLET PO SCH (08:21)
[2017-12-19] MEDS: Ascorbic Acid 500 MG TABLET PO SCH (06:57)
[2017-12-19] MEDS: Insulin LISPRO 300 UNITS/3 ML VIAL SQ SCH ×4 (07:59→20:22)
[2017-12-19] MEDS: Metoprolol XL (24 HR) Succ 50 MG TAB.ER.24H PO SCH (08:35)
[2017-12-19] MEDS: Psyllium 1 PACKET POWD.PACK PO SCH (08:36)
[2017-12-19] MEDS: Gabapentin 400 MG CAPSULE PO SCH ×3 (08:36→20:17)
[2017-12-19] MEDS: *HR* Glimepiride 2 MG TABLET PO SCH (08:37)
[2017-12-19] MEDS: Aspirin Enteric Coated 81 MG Tablet PO SCH (08:37)
[2017-12-19] MEDS: *HR* Metformin 500 MG TABLET PO SCH ×2 (08:37→17:24)
[2017-12-19] MEDS: Multivit/Ca/Min/Fe/FA 1 TAB TABLET PO SCH (08:37)
[2017-12-19] MEDS: *HR* OxyCODONE/APAP 7.5/325 TABLET PO PRN ×2 (08:46→17:23)
[2017-12-19] MEDS: Methyl Salicylate/Menthol 28 GM TUBE TP SCH (10:19)
--- NOTE | 2017-12-19 15:00 | Internal Med Progress Note ---
Date of Encounter: 12/19/17 Time of Encounter: 14:50 - Assessment and plan (1) Status post lumbar spinal fusion Current Visit: No Status: Acute Assessment and plan: December 07. Continue therapy interventions. Continue present analgesic regimen. July 10. Will increase Duragesic to 25 g/hour patch. Continue analgesic regimen otherwise as at present. (2) Anemia Current Visit: Yes Status: Acute Assessment and plan: December 07. Anemia testing showed iron 11, transferrin saturation 4%, transferrin 187, ferritin 167, B12 440, and folate 20.7. Will order oral ferrous sulfate with vitamin C. December 10. Hemoglobin decreased to 8.6 yesterday. Will recheck labs in a.m. December 12. Hemoglobin increased to 9.4. Continue present regimen. December 17. Recheck labs in a.m. December 19. Hemoglobin stable at 9.4. Qualifiers: Anemia type: unspecified type Qualified Code(s): D64.9 - Anemia, unspecified (3) DM type 2 (diabetes mellitus, type 2) Current Visit: Yes Status: Chronic Assessment and plan: December 07. Hemoglobin A1c was 8.7% on 11/25/2017. Continue Glucophage and Accu- Cheks with SSI. December 08. Blood sugars are above desirable range. Will add Amaryl. December 10. Blood sugars improved. Continue Glucophage and Amaryl. December 12. Will increase Amaryl to better control blood sugars. December 14. Blood sugars better controlled. Continue present dose Amaryl and Glucophage December 17. Blood sugars now well controlled. Continue present regimen. December 19. Blood sugars reviewed. Continue present dose Amaryl and Glucophage. Qualifiers: Diabetes mellitus predatory animal exterminator insulin use: without predatory animal exterminator use Diabetes mellitus complication status: without complication Qualified Code(s): E11.9 - Type 2 diabetes mellitus without complications (4) Dysphagia Current Visit: Yes Status: Acute Assessment and plan: December 07. Speech/swallowing therapy evaluation ordered. December 08. Swallowing therapy recommended mechanical soft diet with thin liquids. Qualifiers: Dysphagia type: unspecified Qualified Code(s): R13.10 - Dysphagia, unspecified (5) HTN (hypertension) Current Visit: No Status: Chronic Assessment and plan: December 07. Blood pressure stable. Continue Cozaar, Norvasc, and Toprol. December 09. Blood pressures stable. However because of tachycardia will decrease Cozaar and increase Toprol. Continue Norvasc. December 12. Blood pressure stable to borderline low. Will decrease Norvasc and increase Toprol. December 17. Blood pressure satisfactory but borderline tachycardia persists. Will discontinue Norvasc and increase Toprol. December 19. Tachycardia slightly improved. Continue Toprol and Cozaar. Remain off Norvasc Qualifiers: Hypertension type: essential hypertension Qualified Code(s): I10 - Essential (primary) hypertension (6) Lacunar infarction Current Visit: Yes Status: Acute Assessment and plan: December 12. MRI 06/21/2017 showed mild bilateral white matter chronic small vessel ischemic changes. Will order speech eval for cognitive intervention assessment. December 14. Will order MMSE. December 17. MMSE score . - Subjective Interval history: December 07. He has no new complaints. He states his pain has significantly lessened. December 08. He has no new complaints. He states his pain has slightly increased. December 10. He has no new complaints. He does not feel his pain has significantly changed. December 12. He has no new complaints. December 14. He has no new complaints and states he feels better December 17. He has no new complaints. He feels he is making progress in therapy. December 19. He has no new complaints - Constitutional Vitals: Temp Pulse Resp BP Pulse Ox 98.4 F 97 18 126/81 91 12/19/17 07:34 12/19/17 07:34 12/19/17 07:34 12/19/17 07:34 12/19/17 07:34 Exam: He is resting comfortably in bed and appears in no acute distress. His affect is bright and cheerful. He is talkative. I reviewed his medications and lab results. Internal Medicine: Result - Labs CBC & Chem 7: 12/18/17 05:40 12/18/17 05:40 - VTE Documentation of Mechanical Device: Graduated compression elastic hosiery Consult Discharge Plan - Plan Referrals: Cherelle Li [Primary Care Provider] - 1 week
[2017-12-19] MEDS: traZODone 50 MG TABLET PO PRN (20:18)
[2017-12-20] MEDS: Ascorbic Acid 500 MG TABLET PO SCH (07:14)
[2017-12-20] MEDS: Insulin LISPRO 300 UNITS/3 ML VIAL SQ SCH ×5 (07:54→21:03)
[2017-12-20] MEDS: Gabapentin 400 MG CAPSULE PO SCH ×3 (08:11→20:57)
[2017-12-20] MEDS: Multivit/Ca/Min/Fe/FA 1 TAB TABLET PO SCH (08:11)
[2017-12-20] MEDS: *HR* OxyCODONE/APAP 7.5/325 TABLET PO PRN ×2 (08:11→13:06)
[2017-12-20] MEDS: *HR* Metformin 500 MG TABLET PO SCH ×2 (08:11→15:42)
[2017-12-20] MEDS: Aspirin Enteric Coated 81 MG Tablet PO SCH (08:11)
[2017-12-20] MEDS: *HR* Glimepiride 2 MG TABLET PO SCH (08:11)
[2017-12-20] MEDS: Psyllium 1 PACKET POWD.PACK PO SCH (08:12)
[2017-12-20] MEDS: Metoprolol XL (24 HR) Succ 50 MG TAB.ER.24H PO SCH (08:12)
[2017-12-20] MEDS: Methyl Salicylate/Menthol 28 GM TUBE TP SCH (08:29)
[2017-12-20] MEDS: EXENATIDE SQ SCH (08:30)
[2017-12-20] MEDS ORDERED: Dextrose Gel 15 GM/37.5 ML TUBE PO PRN ×2 (16:52)
[2017-12-20] MEDS ORDERED: *HR* Dextrose 50 % in Water (Syg) 50 ML SYRINGE IVP PRN (16:52)
[2017-12-20] MEDS ORDERED: D5% in Water 1,000 ML IVC PRN (16:52)
[2017-12-20] MEDS: *HR* FentaNYL PATCH 25 MCG PATCH TD SCH (17:45)
[2017-12-21] MEDS: Ascorbic Acid 500 MG TABLET PO SCH (05:55)
[2017-12-21] MEDS: Insulin LISPRO 300 UNITS/3 ML VIAL SQ SCH ×4 (07:15→20:47)
[2017-12-21] MEDS: *HR* Glimepiride 2 MG TABLET PO SCH (07:40)
[2017-12-21] MEDS: Psyllium 1 PACKET POWD.PACK PO SCH (07:40)
[2017-12-21] MEDS: Multivit/Ca/Min/Fe/FA 1 TAB TABLET PO SCH (07:40)
[2017-12-21] MEDS: Gabapentin 400 MG CAPSULE PO SCH ×3 (07:41→20:45)
[2017-12-21] MEDS: Metoprolol XL (24 HR) Succ 50 MG TAB.ER.24H PO SCH (07:41)
[2017-12-21] MEDS: Aspirin Enteric Coated 81 MG Tablet PO SCH (07:41)
[2017-12-21] MEDS: *HR* Metformin 500 MG TABLET PO SCH ×2 (07:41→16:13)
[2017-12-21] MEDS: Methyl Salicylate/Menthol 28 GM TUBE TP SCH (07:41)
[2017-12-21] MEDS ORDERED: Acetaminophen 325 MG TABLET PO PRN (09:10)
[2017-12-21] MEDS: *HR* OxyCODONE/APAP 7.5/325 TABLET PO PRN ×2 (09:22→16:10)
[2017-12-22] MEDS: *HR* OxyCODONE/APAP 7.5/325 TABLET PO PRN ×2 (03:08→17:34)
[2017-12-22] MEDS: Ascorbic Acid 500 MG TABLET PO SCH (06:49)
[2017-12-22] MEDS: Insulin LISPRO 300 UNITS/3 ML VIAL SQ SCH ×4 (09:43→20:23)
[2017-12-22] MEDS: Psyllium 1 PACKET POWD.PACK PO SCH (09:44)
[2017-12-22] MEDS: Multivit/Ca/Min/Fe/FA 1 TAB TABLET PO SCH (09:46)
[2017-12-22] MEDS: *HR* Glimepiride 2 MG TABLET PO SCH (09:46)
[2017-12-22] MEDS: Gabapentin 400 MG CAPSULE PO SCH ×3 (09:46→20:23)
[2017-12-22] MEDS: *HR* Metformin 500 MG TABLET PO SCH ×2 (09:47→17:07)
[2017-12-22] MEDS: Metoprolol XL (24 HR) Succ 50 MG TAB.ER.24H PO SCH (09:47)
[2017-12-22] MEDS: Aspirin Enteric Coated 81 MG Tablet PO SCH (09:47)
[2017-12-22] MEDS: Methyl Salicylate/Menthol 28 GM TUBE TP SCH (09:50)
--- NOTE | 2017-12-22 12:17 | Internal Med Progress Note ---
Date of Encounter: 12/22/17 Time of Encounter: 12:10 - Assessment and plan (1) Status post lumbar spinal fusion Current Visit: No Status: Acute Assessment and plan: December 07. Continue therapy interventions. Continue present analgesic regimen. December 08. Will increase Duragesic to 25 g/hour patch. Continue analgesic regimen otherwise as at present. She and 25. Continue analgesic and therapy regimen. Anticipate discharge home 12/30/2017. (2) Anemia Current Visit: Yes Status: Acute Assessment and plan: December 07. Anemia testing showed iron 11, transferrin saturation 4%, transferrin 187, ferritin 167, B12 440, and folate 20.7. Will order oral ferrous sulfate with vitamin C. December 10. Hemoglobin decreased to 8.6 yesterday. Will recheck labs in a.m. December 12. Hemoglobin increased to 9.4. Continue present regimen. December 17. Recheck labs in a.m. December 19. Hemoglobin stable at 9.4. December 22. Will check CBC in a.m. Continue ferrous sulfate and vitamin C. Qualifiers: Anemia type: unspecified type Qualified Code(s): D64.9 - Anemia, unspecified (3) DM type 2 (diabetes mellitus, type 2) Current Visit: Yes Status: Chronic Assessment and plan: December 07. Hemoglobin A1c was 8.7% on 11/25/2017. Continue Glucophage and Accu- Cheks with SSI. December 08. Blood sugars are above desirable range. Will add Amaryl. December 10. Blood sugars improved. Continue Glucophage and Amaryl. December 12. Will increase Amaryl to better control blood sugars. December 14. Blood sugars better controlled. Continue present dose Amaryl and Glucophage December 17. Blood sugars now well controlled. Continue present regimen. December 19. Blood sugars reviewed. Continue present dose Amaryl and Glucophage. Qualifiers: Diabetes mellitus manager terminal insulin use: without retirement use Diabetes mellitus complication status: without complication Qualified Code(s): E11.9 - Type 2 diabetes mellitus without complications (4) Dysphagia Current Visit: Yes Status: Acute Assessment and plan: December 07. Speech/swallowing therapy evaluation ordered. December 08. Swallowing therapy recommended mechanical soft diet with thin liquids. Qualifiers: Dysphagia type: unspecified Qualified Code(s): R13.10 - Dysphagia, unspecified (5) HTN (hypertension) Current Visit: No Status: Chronic Assessment and plan: December 07. Blood pressure stable. Continue Cozaar, Norvasc, and Toprol. December 09. Blood pressures stable. However because of tachycardia will decrease Cozaar and increase Toprol. Continue Norvasc. December 12. Blood pressure stable to borderline low. Will decrease Norvasc and increase Toprol. December 17. Blood pressure satisfactory but borderline tachycardia persists. Will discontinue Norvasc and increase Toprol. December 19. Tachycardia slightly improved. Continue Toprol and Cozaar. Remain off Norvasc December 22. Tachycardia further improved. Continue Toprol and Cozaar and remain off Norvasc. Qualifiers: Hypertension type: essential hypertension Qualified Code(s): I10 - Essential (primary) hypertension (6) Lacunar infarction Current Visit: Yes Status: Acute Assessment and plan: December 12. MRI 06/21/2017 showed mild bilateral white matter chronic small vessel ischemic changes. Will order speech eval for cognitive intervention assessment. December 14. Will order MMSE. December 17. MMSE score 23/30. - Subjective Interval history: December 07. He has no new complaints. He states his pain has significantly lessened. December 08. He has no new complaints. He states his pain has slightly increased. December 10. He has no new complaints. He does not feel his pain has significantly changed. December 12. He has no new complaints. December 14. He has no new complaints and states he feels better December 17. He has no new complaints. He feels he is making progress in therapy. December 19. He has no new complaints December 22. He has no new complaints and is pleased with his progress. - Constitutional Vitals: Temp Pulse Resp BP Pulse Ox 97.9 F 86 16 121/80 96 12/22/17 06:36 12/22/17 06:36 12/22/17 06:36 12/22/17 06:36 12/22/17 06:36 Exam: He is sitting in a chair at bedside eating lunch and resting comfortably. His affect is very bright and cheerful. He does not appear to be in pain. I reviewed his medications and lab results. Internal Medicine: Result - Labs CBC & Chem 7: 12/18/17 05:40 12/18/17 05:40 - VTE Documentation of Mechanical Device: Graduated compression elastic hosiery Consult Discharge Plan - Plan Referrals: Cherelle Li [Primary Care Provider] - 1 week
[2017-12-23] MEDS: Ascorbic Acid 500 MG TABLET PO SCH (04:47)
[2017-12-23] MEDS: *HR* OxyCODONE/APAP 7.5/325 TABLET PO PRN ×3 (04:47→20:11)
[2017-12-23 05:07] LABS: Basophils % 0.4 %; Eosinophils # 0.3 K/mcL (0.0-0.6); Eosinophils % 6.7 %; Hematocrit 30.5 % (37.5-50.1); Hemoglobin 9.7 g/dL (12.9-16.9); Immature Granulocytes % 0.2 % (0-4); Lymphocytes % 21.7 %; Mean Corpuscular HGB Conc 31.8 g/dL (31.6-35.5); Mean Corpuscular Hemoglobin 29.2 pg (28.0-33.3); Mean Corpuscular Volume 91.9 fL (83.0-100.0); Mean Platelet Volume 8.3 fL (9.4-12.4); Monocytes # 0.5 K/mcL (0.0-1.3); Monocytes % 12.1 %; Neutrophils # 2.6 K/mcL (1.6-8.9); Platelet Count 278 K/mcL (140-400); Red Blood Count 3.32 M/mcL (4.19-5.50); Red Cell Distribution Width 14.6 % (11.5-14.5); Segmented Neutrophils % 58.9 %
[2017-12-23 05:23] LABS: BUN/Creatinine Ratio 9 (6-26); Blood Urea Nitrogen 7 mg/dL (8-23); Calcium 8.9 mg/dL (8.6-10.3); Carbon Dioxide 29 mEq/L (23-29); Chloride 98 mEq/L (98-107); Glucose 109 mg/dL (70-105); Osmolality,Calculated 279 (280-300); Potassium 3.9 mEq/L (3.5-5.1); Sodium 135 mEq/L (136-145); eGFR For African Americans > 60 (> 60); eGFR For Non-African Americans > 60 (> 60)
[2017-12-23] MEDS: Insulin LISPRO 300 UNITS/3 ML VIAL SQ SCH ×4 (07:56→20:12)
[2017-12-23] MEDS: Psyllium 1 PACKET POWD.PACK PO SCH (08:50)
[2017-12-23] MEDS: Metoprolol XL (24 HR) Succ 50 MG TAB.ER.24H PO SCH (08:50)
[2017-12-23] MEDS: Gabapentin 400 MG CAPSULE PO SCH ×3 (08:50→20:11)
[2017-12-23] MEDS: Methyl Salicylate/Menthol 28 GM TUBE TP SCH (08:50)
[2017-12-23] MEDS: Aspirin Enteric Coated 81 MG Tablet PO SCH (08:51)
[2017-12-23] MEDS: *HR* Glimepiride 2 MG TABLET PO SCH (08:51)
[2017-12-23] MEDS: *HR* Metformin 500 MG TABLET PO SCH ×2 (08:51→17:22)
[2017-12-23] MEDS: Multivit/Ca/Min/Fe/FA 1 TAB TABLET PO SCH (08:51)
[2017-12-23] MEDS: Ondansetron ODT 4 MG TAB.RAPDIS SL PRN (16:28)
[2017-12-23] MEDS: *HR* FentaNYL PATCH 25 MCG PATCH TD SCH (17:20)
--- NOTE | 2017-12-23 18:19 | Internal Med Progress Note ---
Date of Encounter: 12/23/17 Time of Encounter: 18:10 - Assessment and plan (1) Status post lumbar spinal fusion Current Visit: No Status: Acute Assessment and plan: December 07. Continue therapy interventions. Continue present analgesic regimen. December 08. Will increase Duragesic to 25 g/hour patch. Continue analgesic regimen otherwise as at present. December 22. Continue analgesic and therapy regimen. Anticipate discharge home 08/2017. (2) Anemia Current Visit: Yes Status: Acute Assessment and plan: December 07. Anemia testing showed iron 11, transferrin saturation 4%, transferrin 187, ferritin 167, B12 440, and folate 20.7. Will order oral ferrous sulfate with vitamin C. December 10. Hemoglobin decreased to 8.6 yesterday. Will recheck labs in a.m. December 12. Hemoglobin increased to 9.4. Continue present regimen. December 17. Recheck labs in a.m. December 19. Hemoglobin stable at 9.4. December 22. Will check CBC in a.m. Continue ferrous sulfate and vitamin C. December 23. Hemoglobin slightly improved to 9.7. Qualifiers: Anemia type: unspecified type Qualified Code(s): D64.9 - Anemia, unspecified (3) DM type 2 (diabetes mellitus, type 2) Current Visit: Yes Status: Chronic Assessment and plan: December 07. Hemoglobin A1c was 8.7% on 11/25/2017. Continue Glucophage and Accu- Cheks with SSI. December 08. Blood sugars are above desirable range. Will add Amaryl. December 10. Blood sugars improved. Continue Glucophage and Amaryl. December 12. Will increase Amaryl to better control blood sugars. December 14. Blood sugars better controlled. Continue present dose Amaryl and Glucophage December 17. Blood sugars now well controlled. Continue present regimen. December 19. Blood sugars reviewed. Continue present dose Amaryl and Glucophage. Qualifiers: Diabetes mellitus intermodal dispatcher insulin use: without intermodal dispatcher use Diabetes mellitus complication status: without complication Qualified Code(s): E11.9 - Type 2 diabetes mellitus without complications (4) Dysphagia Current Visit: Yes Status: Acute Assessment and plan: December 07. Speech/swallowing therapy evaluation ordered. December 08. Swallowing therapy recommended mechanical soft diet with thin liquids. Qualifiers: Dysphagia type: unspecified Qualified Code(s): R13.10 - Dysphagia, unspecified (5) HTN (hypertension) Current Visit: No Status: Chronic Assessment and plan: December 07. Blood pressure stable. Continue Cozaar, Norvasc, and Toprol. December 09. Blood pressures stable. However because of tachycardia will decrease Cozaar and increase Toprol. Continue Norvasc. December 12. Blood pressure stable to borderline low. Will decrease Norvasc and increase Toprol. December 17. Blood pressure satisfactory but borderline tachycardia persists. Will discontinue Norvasc and increase Toprol. December 19. Tachycardia slightly improved. Continue Toprol and Cozaar. Remain off Norvasc December 22. Tachycardia further improved. Continue Toprol and Cozaar and remain off Norvasc. Qualifiers: Hypertension type: essential hypertension Qualified Code(s): I10 - Essential (primary) hypertension (6) Lacunar infarction Current Visit: Yes Status: Acute Assessment and plan: December 12. MRI 06/21/2017 showed mild bilateral white matter chronic small vessel ischemic changes. Will order speech eval for cognitive intervention assessment. December 14. Will order MMSE. December 17. MMSE score 23/30. - Subjective Interval history: December 07. He has no new complaints. He states his pain has significantly lessened. December 08. He has no new complaints. He states his pain has slightly increased. December 10. He has no new complaints. He does not feel his pain has significantly changed. December 12. He has no new complaints. December 14. He has no new complaints and states he feels better December 17. He has no new complaints. He feels he is making progress in therapy. December 19. He has no new complaints December 22. He has no new complaints and is pleased with his progress. December 23. He states he had a "flu" for a few hours today but now he feels back to his baseline. He did not participate in the afternoon therapy well. He denies pain or dyspnea at present time. - Constitutional Vitals: Temp Pulse Resp BP Pulse Ox 98.3 F 81 16 112/68 97 12/23/17 06:00 12/23/17 06:00 12/23/17 06:00 12/23/17 06:00 12/23/17 06:00 Exam: He is resting comfortably in bed and appears in no acute distress. His affect is bright and cheerful. He is not tachypnea. I reviewed his medications and lab results. Internal Medicine: Result - Labs CBC & Chem 7: 12/23/17 04:36 12/23/17 04:36 Labs: Short CBC 12/23/17 Range/Units 04:36 WBC 4.5 (4.3-11.1) K/mcL Hgb 9.7 L (12.9-16.9) g/dL Hct 30.5 L (37.5-50.1) % Plt Count 278 (140-400) K/mcL Neutrophils # 2.6 (1.6-8.9) K/mcL BMP 12/23/17 04:36 Sodium 135 L Potassium 3.9 Chloride 98 Carbon Dioxide 29 BUN 7 L Creatinine 0.81 Glucose 109 H Calcium 8.9 - VTE Documentation of Mechanical Device: Graduated compression elastic hosiery Consult Discharge Plan - Plan Referrals: Cherelle Li [Primary Care Provider] - 1 week
[2017-12-23] MEDS: traZODone 50 MG TABLET PO PRN (20:11)
[2017-12-24] MEDS: Ascorbic Acid 500 MG TABLET PO SCH (06:26)
[2017-12-24] MEDS: Insulin LISPRO 300 UNITS/3 ML VIAL SQ SCH ×4 (09:30→20:26)
[2017-12-24] MEDS: Multivit/Ca/Min/Fe/FA 1 TAB TABLET PO SCH (09:46)
[2017-12-24] MEDS: Gabapentin 400 MG CAPSULE PO SCH ×3 (09:46→20:25)
[2017-12-24] MEDS: *HR* OxyCODONE/APAP 7.5/325 TABLET PO PRN ×2 (09:46→17:25)
[2017-12-24] MEDS: Metoprolol XL (24 HR) Succ 50 MG TAB.ER.24H PO SCH (09:47)
[2017-12-24] MEDS: Aspirin Enteric Coated 81 MG Tablet PO SCH (09:47)
[2017-12-24] MEDS: *HR* Glimepiride 2 MG TABLET PO SCH (09:47)
[2017-12-24] MEDS: *HR* Metformin 500 MG TABLET PO SCH ×2 (09:47→17:25)
[2017-12-24] MEDS: Methyl Salicylate/Menthol 28 GM TUBE TP SCH (09:48)
[2017-12-24] MEDS: Psyllium 1 PACKET POWD.PACK PO SCH (09:55)
[2017-12-25] MEDS: Ascorbic Acid 500 MG TABLET PO SCH (05:35)
[2017-12-25] MEDS: *HR* OxyCODONE/APAP 7.5/325 TABLET PO PRN ×4 (06:15→21:10)
[2017-12-25] MEDS: Insulin LISPRO 300 UNITS/3 ML VIAL SQ SCH ×4 (08:03→21:01)
[2017-12-25] MEDS: Multivit/Ca/Min/Fe/FA 1 TAB TABLET PO SCH (08:03)
[2017-12-25] MEDS: Methyl Salicylate/Menthol 28 GM TUBE TP SCH (08:03)
[2017-12-25] MEDS: *HR* Metformin 500 MG TABLET PO SCH ×2 (08:03→17:09)
[2017-12-25] MEDS: Metoprolol XL (24 HR) Succ 50 MG TAB.ER.24H PO SCH (08:03)
[2017-12-25] MEDS: Aspirin Enteric Coated 81 MG Tablet PO SCH (08:04)
[2017-12-25] MEDS: *HR* Glimepiride 2 MG TABLET PO SCH (08:04)
[2017-12-25] MEDS: Gabapentin 400 MG CAPSULE PO SCH ×3 (08:04→21:01)
[2017-12-25] MEDS: Psyllium 1 PACKET POWD.PACK PO SCH (08:18)
--- NOTE | 2017-12-25 11:37 | Internal Med Progress Note ---
Date of Encounter: 12/25/17 Time of Encounter: 11:30 - Assessment and plan (1) Status post lumbar spinal fusion Current Visit: No Status: Acute Assessment and plan: December 07. Continue therapy interventions. Continue present analgesic regimen. December 08. Will increase Duragesic to 25 g/hour patch. Continue analgesic regimen otherwise as at present. December 22. Continue analgesic and therapy regimen. Anticipate discharge home 08/2017. (2) Anemia Current Visit: Yes Status: Acute Assessment and plan: December 07. Anemia testing showed iron 11, transferrin saturation 4%, transferrin 187, ferritin 167, B12 440, and folate 20.7. Will order oral ferrous sulfate with vitamin C. December 10. Hemoglobin decreased to 8.6 yesterday. Will recheck labs in a.m. December 12. Hemoglobin increased to 9.4. Continue present regimen. December 17. Recheck labs in a.m. December 19. Hemoglobin stable at 9.4. December 22. Will check CBC in a.m. Continue ferrous sulfate and vitamin C. December 23. Hemoglobin slightly improved to 9.7. Qualifiers: Anemia type: unspecified type Qualified Code(s): D64.9 - Anemia, unspecified (3) DM type 2 (diabetes mellitus, type 2) Current Visit: Yes Status: Chronic Assessment and plan: December 07. Hemoglobin A1c was 8.7% on 11/25/2017. Continue Glucophage and Accu- Cheks with SSI. December 08. Blood sugars are above desirable range. Will add Amaryl. December 10. Blood sugars improved. Continue Glucophage and Amaryl. December 12. Will increase Amaryl to better control blood sugars. December 14. Blood sugars better controlled. Continue present dose Amaryl and Glucophage December 17. Blood sugars now well controlled. Continue present regimen. December 19. Blood sugars reviewed. Continue present dose Amaryl and Glucophage. Qualifiers: Diabetes mellitus ad terminal makeup operator insulin use: without ad terminal makeup operator use Diabetes mellitus complication status: without complication Qualified Code(s): E11.9 - Type 2 diabetes mellitus without complications (4) Dysphagia Current Visit: Yes Status: Acute Assessment and plan: December 07. Speech/swallowing therapy evaluation ordered. December 08. Swallowing therapy recommended mechanical soft diet with thin liquids. Qualifiers: Dysphagia type: unspecified Qualified Code(s): R13.10 - Dysphagia, unspecified (5) HTN (hypertension) Current Visit: No Status: Chronic Assessment and plan: December 07. Blood pressure stable. Continue Cozaar, Norvasc, and Toprol. December 09. Blood pressures stable. However because of tachycardia will decrease Cozaar and increase Toprol. Continue Norvasc. December 12. Blood pressure stable to borderline low. Will decrease Norvasc and increase Toprol. December 17. Blood pressure satisfactory but borderline tachycardia persists. Will discontinue Norvasc and increase Toprol. December 19. Tachycardia slightly improved. Continue Toprol and Cozaar. Remain off Norvasc December 22. Tachycardia further improved. Continue Toprol and Cozaar and remain off Norvasc. December 25. Tachycardia remains resolved. Continued Toprol and Cozaar. Qualifiers: Hypertension type: essential hypertension Qualified Code(s): I10 - Essential (primary) hypertension (6) Lacunar infarction Current Visit: Yes Status: Acute Assessment and plan: December 12. MRI 06/21/2017 showed mild bilateral white matter chronic small vessel ischemic changes. Will order speech eval for cognitive intervention assessment. December 14. Will order MMSE. December 17. MMSE score . December 25. Continue aspirin. - Subjective Interval history: December 07. He has no new complaints. He states his pain has significantly lessened. December 08. He has no new complaints. He states his pain has slightly increased. December 10. He has no new complaints. He does not feel his pain has significantly changed. December 12. He has no new complaints. December 14. He has no new complaints and states he feels better December 17. He has no new complaints. He feels he is making progress in therapy. December 19. He has no new complaints December 22. He has no new complaints and is pleased with his progress. December 23. He states he had a "flu" for a few hours today but now he feels back to his baseline. He did not participate in the afternoon therapy well. He denies pain or dyspnea at present time. December 25. He has no new complaints and feels well. He is eagerly anticipating discharge home 12/30/2017. - Constitutional Vitals: Temp Pulse Resp BP Pulse Ox 98.1 F 86 18 103/61 95 12/25/17 07:15 12/25/17 07:15 12/25/17 07:15 12/25/17 07:15 12/25/17 07:15 Exam: He is sitting comfortably in a chair at bedside and appears in no acute distress. His affect is bright and cheerful. I reviewed his medications and lab results. Internal Medicine: Result - Labs CBC & Chem 7: 12/23/17 04:36 12/23/17 04:36 - VTE Documentation of Mechanical Device: Graduated compression elastic hosiery Consult Discharge Plan - Plan Referrals: Cherelle Li [Primary Care Provider] - 1 week
[2017-12-25] MEDS: traZODone 50 MG TABLET PO PRN (21:01)
[2017-12-26] MEDS: Insulin LISPRO 300 UNITS/3 ML VIAL SQ SCH ×4 (07:46→22:13)
[2017-12-26] MEDS: Ascorbic Acid 500 MG TABLET PO SCH (08:05)
[2017-12-26] MEDS: Psyllium 1 PACKET POWD.PACK PO SCH (08:05)
[2017-12-26] MEDS: *HR* OxyCODONE/APAP 7.5/325 TABLET PO PRN ×3 (08:08→18:34)
[2017-12-26] MEDS: Aspirin Enteric Coated 81 MG Tablet PO SCH (08:09)
[2017-12-26] MEDS: Gabapentin 400 MG CAPSULE PO SCH ×5 (08:11→21:45)
[2017-12-26] MEDS: *HR* Glimepiride 2 MG TABLET PO SCH (08:11)
[2017-12-26] MEDS: Multivit/Ca/Min/Fe/FA 1 TAB TABLET PO SCH (08:12)
[2017-12-26] MEDS: Methyl Salicylate/Menthol 28 GM TUBE TP SCH (08:12)
[2017-12-26] MEDS: Metoprolol XL (24 HR) Succ 50 MG TAB.ER.24H PO SCH (08:12)
[2017-12-26] MEDS: *HR* Metformin 500 MG TABLET PO SCH ×2 (08:12→18:35)
[2017-12-26] MEDS: *HR* FentaNYL PATCH 25 MCG PATCH TD SCH (18:35)
--- NOTE | 2017-12-26 19:42 | Internal Med Progress Note ---
Date of Encounter: 12/26/17 Time of Encounter: 19:40 - Assessment and plan (1) Status post lumbar spinal fusion Current Visit: No Status: Acute Assessment and plan: Is having more muscle spasm and back so increase the Neurontin to 300 mg 4 times a day we will continue the fentanyl and analgesia (2) Lacunar infarction Current Visit: Yes Status: Acute Assessment and plan: Continue speech and cognitive intervention, aspirin last MMSE was [address] Meneses may consider checking it before discharge (3) Hyponatremia Current Visit: Yes Status: Acute Assessment and plan: Liberalize his salt intake and recheck on Friday (4) Lumbosacral spondylosis Current Visit: No Status: Chronic Assessment and plan: Less symptomatic since the fusion Qualifiers: Spinal osteoarthritis complication: without myelopathy or radiculopathy Qualified Code(s): M47.817 - Spondylosis without myelopathy or radiculopathy, lumbosacral region (5) Weakness Current Visit: No Status: Acute Assessment and plan: Stable continue rehabilitation (6) HTN (hypertension) Current Visit: No Status: Chronic Assessment and plan: Stable continue Toprol and Cozaar Qualifiers: Hypertension type: essential hypertension Qualified Code(s): I10 - Essential (primary) hypertension (7) Anemia Current Visit: Yes Status: Acute Assessment and plan: Potentially some blood loss from the surgery but will check a CBC on Friday Qualifiers: Anemia type: unspecified type Qualified Code(s): D64.9 - Anemia, unspecified (8) DM type 2 (diabetes mellitus, type 2) Current Visit: Yes Status: Chronic Assessment and plan: Stable continue Amaryl and Glucophage Qualifiers: Diabetes mellitus fci insulin use: without filler leaf cutter long use Diabetes mellitus complication status: without complication Qualified Code(s): E11.9 - Type 2 diabetes mellitus without complications (9) Dysphagia Current Visit: Yes Status: Acute Assessment and plan: Continue speech therapy is apparently on a soft diet Qualifiers: Dysphagia type: unspecified Qualified Code(s): R13.10 - Dysphagia, unspecified - Time Spent With Patient 25 - 35 minutes - Subjective Interval history: 67-year-old male with history of lumbar stenosis status post lumbar spinal fusion reports this pain is improving with after the fentanyl. This specimen was worse I increased his Neurontin. He thinks is helping. He has a day pass on Friday discharge is home. I think that should be fine unless she decompensates. Order some follow-up labs for his anemia and hyponatremia. He denied chest pain or shortness breath or other concerns today. He did ask about what he should be careful about. He should not lift heavy things and he should not bend over he needs to bend down. Answers questions addressed his concerns - Constitutional Vitals: Temp Pulse Resp BP Pulse Ox 98.3 F 96 16 100/62 96 12/26/17 18:54 12/26/17 18:54 12/26/17 18:54 12/26/17 18:54 12/26/17 18:54 Exam: General: Alert and oriented, no acute distress Lungs: Clear to auscultation bilaterally without wheezing or crackles Heart: Regular rate and rythms without murmer or rubs Abdomen: Soft, nontender, Extremities: no edema, redness Skin in the back showed a healing incision Internal Medicine: Result - Labs CBC & Chem 7: 12/23/17 04:36 12/23/17 04:36 - VTE Documentation of Mechanical Device: Graduated compression elastic hosiery Consult Discharge Plan - Plan Referrals: Cherelle Li [Primary Care Provider] - 1 week
[2017-12-26] MEDS: traZODone 50 MG TABLET PO PRN (21:20)
[2017-12-27 05:31] LABS: BUN/Creatinine Ratio 9 (6-26); Blood Urea Nitrogen 8 mg/dL (8-23); Calcium 8.6 mg/dL (8.6-10.3); Carbon Dioxide 30 mEq/L (23-29); Chloride 102 mEq/L (98-107); Glucose 90 mg/dL (70-105); Osmolality,Calculated 282 (280-300); Potassium 4.2 mEq/L (3.5-5.1); Sodium 137 mEq/L (136-145); eGFR For African Americans > 60 (> 60); eGFR For Non-African Americans > 60 (> 60)
[2017-12-27 05:36] LABS: Basophils % 0.4 %; Eosinophils # 0.5 K/mcL (0.0-0.6); Eosinophils % 9.9 %; Hematocrit 28.5 % (37.5-50.1); Hemoglobin 8.8 g/dL (12.9-16.9); Immature Granulocytes % 0.2 % (0-4); Lymphocytes # 1.1 K/mcL (0.6-4.6); Lymphocytes % 24.8 %; Mean Corpuscular HGB Conc 30.9 g/dL (31.6-35.5); Mean Corpuscular Hemoglobin 28.9 pg (28.0-33.3); Mean Corpuscular Volume 93.8 fL (83.0-100.0); Mean Platelet Volume 8.6 fL (9.4-12.4); Monocytes # 0.5 K/mcL (0.0-1.3); Monocytes % 11.9 %; Neutrophils # 2.4 K/mcL (1.6-8.9); Platelet Count 225 K/mcL (140-400); Red Blood Count 3.04 M/mcL (4.19-5.50); Red Cell Distribution Width 15.4 % (11.5-14.5); Segmented Neutrophils % 52.8 %
[2017-12-27] MEDS: Ascorbic Acid 500 MG TABLET PO SCH (06:18)
[2017-12-27] MEDS: Ondansetron ODT 4 MG TAB.RAPDIS SL PRN (08:09)
[2017-12-27] MEDS: *HR* Glimepiride 2 MG TABLET PO SCH ×2 (08:10→12:21)
[2017-12-27] MEDS: Insulin LISPRO 300 UNITS/3 ML VIAL SQ SCH ×4 (08:10→20:00)
[2017-12-27] MEDS: Methyl Salicylate/Menthol 28 GM TUBE TP SCH (08:35)
[2017-12-27] MEDS: Psyllium 1 PACKET POWD.PACK PO SCH (08:36)
[2017-12-27] MEDS: EXENATIDE SQ SCH (08:36)
[2017-12-27] MEDS: *HR* Metformin 500 MG TABLET PO SCH ×2 (08:37→17:26)
[2017-12-27] MEDS: Multivit/Ca/Min/Fe/FA 1 TAB TABLET PO SCH (08:37)
[2017-12-27] MEDS: Aspirin Enteric Coated 81 MG Tablet PO SCH (08:37)
[2017-12-27] MEDS: Metoprolol XL (24 HR) Succ 50 MG TAB.ER.24H PO SCH (08:37)
[2017-12-27] MEDS: Gabapentin 400 MG CAPSULE PO SCH ×4 (08:38→20:05)
[2017-12-27] MEDS: *HR* OxyCODONE/APAP 7.5/325 TABLET PO PRN (09:48)
[2017-12-27] MEDS ORDERED: Mag Hydrox/Al Hydrox/Simeth 30 ML UDC PO PRN (17:16)
--- NOTE | 2017-12-27 17:21 | Internal Med Progress Note ---
Date of Encounter: 12/27/17 Time of Encounter: 17:15 - Assessment and plan (1) DM type 2 (diabetes mellitus, type 2) Current Visit: Yes Status: Chronic Assessment and plan: Stable continue Amaryl and Glucophage 12/27/17 episode of low sugar at 60 we will decrease Amaryl to 1 mg a day till his appetite improves to baseline scale insulin Qualifiers: Diabetes mellitus group home insulin use: without group home use Diabetes mellitus complication status: without complication Qualified Code(s): E11.9 - Type 2 diabetes mellitus without complications (2) Status post lumbar spinal fusion Current Visit: Yes Status: Acute Assessment and plan: Is having more muscle spasm and back so increase the Neurontin to 300 mg 4 times a day we will continue the fentanyl and analgesia 12/27/17 patient reports improvement with Neurontin continue 4 times a day (3) Lacunar infarction Current Visit: Yes Status: Acute Assessment and plan: Continue speech and cognitive intervention, aspirin last MMSE was [address] Meneses may consider checking it before discharge 12/27/17 stable at this time (4) Hyponatremia Current Visit: Yes Status: Acute Assessment and plan: Liberalize his salt intake and recheck on Friday12/27/17 slab work came back within normal sodium (5) Lumbosacral spondylosis Current Visit: No Status: Chronic Assessment and plan: Less symptomatic since the fusion 12/27/17 pain better controlled Qualifiers: Spinal osteoarthritis complication: without myelopathy or radiculopathy Qualified Code(s): M47.817 - Spondylosis without myelopathy or radiculopathy, lumbosacral region (6) Weakness Current Visit: No Status: Acute Assessment and plan: Stable continue rehabilitation 12/27/17 continue rehabilitation (7) HTN (hypertension) Current Visit: No Status: Chronic Assessment and plan: Stable continue Toprol and Cozaar 12/27/17 stable continue Cozaar and Toprol Qualifiers: Hypertension type: essential hypertension Qualified Code(s): I10 - Essential (primary) hypertension (8) Anemia Current Visit: Yes Status: Acute Assessment and plan: Potentially some blood loss from the surgery but will check a CBC on Friday12/27/17 hemoglobin 8.8 and asymptomatic will follow-up lab work Qualifiers: Anemia type: unspecified type Qualified Code(s): D64.9 - Anemia, unspecified (9) Dysphagia Current Visit: Yes Status: Acute Assessment and plan: Continue speech therapy is apparently on a soft diet 12/27/17 stable continue mechanical soft diet Qualifiers: Dysphagia type: unspecified Qualified Code(s): R13.10 - Dysphagia, unspecified (10) GERD (gastroesophageal reflux disease) Current Visit: Yes Status: Acute Assessment and plan: 12/27/17 not well controlled we will give him Maalox as needed and if he needs a routinely encouraged him to use an acid suppressant Qualifiers: Esophagitis presence: without esophagitis Qualified Code(s): K21.9 - Gastro -esophageal reflux disease without esophagitis - Time Spent With Patient 25 - 35 minutes - Subjective Interval history: 67-year-old male with history of lumbar stenosis status post lumbar spinal fusion reports this pain is improving with after the fentanyl. This specimen was worse I increased his Neurontin. He thinks is helping. He has a day pass on Friday discharge is home. I think that should be fine unless she decompensates. Order some follow-up labs for his anemia and hyponatremia. He denied chest pain or shortness breath or other concerns today. He did ask about what he should be careful about. He should not lift heavy things and he should not bend over he needs to bend down. Answers questions addressed his concerns 12/27/17 patient reports his pain control is improving with increased Neurontin , he had some upset stomach this morning with last reflex. Discussed with him about treatment options such as Zantac, recommend he stops using the coffee or things of added acid to his stomach. He prefers to take an as needed medicine so we will order Maalox. His blood sugar dropped this morning when he was not hungry he got sliding-scale insulin but the Amaryl was held. Will decrease Amaryl to 1 mg a day until his appetite becomes consistent again. His hemoglobin is 8.8 and is not symptomatic so we will consider blood transfusion and tilts below 7. His blood sugar was good at 90 - Constitutional Vitals: Temp Pulse Resp BP Pulse Ox 97.9 F 73 17 116/66 94 12/27/17 06:59 12/27/17 06:59 12/27/17 06:59 12/27/17 06:59 12/27/17 06:59 Exam: General: Alert and oriented, no acute distress Lungs: Clear to auscultation bilaterally without wheezing or crackles Heart: Regular rate and rythms without murmer or rubs Abdomen: Soft, nontender, Extremities: no edema, redness Internal Medicine: Result - Labs CBC & Chem 7: 12/27/17 04:36 12/27/17 04:36 Labs: Short CBC 12/27/17 Range/Units 04:36 WBC 4.6 (4.3-11.1) K/mcL Hgb 8.8 L (12.9-16.9) g/dL Hct 28.5 L (37.5-50.1) % Plt Count 225 (140-400) K/mcL Neutrophils # 2.4 (1.6-8.9) K/mcL BMP 12/27/17 04:36 Sodium 137 Potassium 4.2 Chloride 102 Carbon Dioxide 30 H BUN 8 Creatinine 0.85 Glucose 90 Calcium 8.6 - VTE Documentation of Mechanical Device: Graduated compression elastic hosiery Consult Discharge Plan - Plan Referrals: Cherelle Li [Primary Care Provider] - 1 week
[2017-12-28] MEDS: *HR* OxyCODONE/APAP 7.5/325 TABLET PO PRN ×2 (00:56→08:33)
[2017-12-28 05:37] LABS: Basophils % 0.4 %; Eosinophils # 0.4 K/mcL (0.0-0.6); Eosinophils % 9.1 %; Hematocrit 28.4 % (37.5-50.1); Hemoglobin 9.2 g/dL (12.9-16.9); Immature Granulocytes % 0.2 % (0-4); Lymphocytes # 0.9 K/mcL (0.6-4.6); Lymphocytes % 18.4 %; Mean Corpuscular HGB Conc 32.4 g/dL (31.6-35.5); Mean Corpuscular Hemoglobin 30.5 pg (28.0-33.3); Mean Platelet Volume 8.3 fL (9.4-12.4); Monocytes # 0.5 K/mcL (0.0-1.3); Monocytes % 11.2 %; Neutrophils # 2.9 K/mcL (1.6-8.9); Platelet Count 207 K/mcL (140-400); Red Blood Count 3.02 M/mcL (4.19-5.50); Red Cell Distribution Width 15.3 % (11.5-14.5); Segmented Neutrophils % 60.7 %
[2017-12-28] MEDS: Ascorbic Acid 500 MG TABLET PO SCH (05:43)
[2017-12-28 06:02] LABS: BUN/Creatinine Ratio 8 (6-26); Blood Urea Nitrogen 7 mg/dL (8-23); Calcium 8.6 mg/dL (8.6-10.3); Carbon Dioxide 31 mEq/L (23-29); Chloride 102 mEq/L (98-107); Glucose 99 mg/dL (70-105); Osmolality,Calculated 282 (280-300); Potassium 4.2 mEq/L (3.5-5.1); Sodium 137 mEq/L (136-145); eGFR For African Americans > 60 (> 60); eGFR For Non-African Americans > 60 (> 60)
[2017-12-28] MEDS: Methyl Salicylate/Menthol 28 GM TUBE TP SCH (08:23)
[2017-12-28] MEDS: Psyllium 1 PACKET POWD.PACK PO SCH (08:27)
[2017-12-28] MEDS: Metoprolol XL (24 HR) Succ 50 MG TAB.ER.24H PO SCH (08:30)
[2017-12-28] MEDS: *HR* Glimepiride 2 MG TABLET PO SCH (08:31)
[2017-12-28] MEDS: Multivit/Ca/Min/Fe/FA 1 TAB TABLET PO SCH (08:32)
[2017-12-28] MEDS: Gabapentin 400 MG CAPSULE PO SCH ×4 (08:32→22:02)
[2017-12-28] MEDS: Aspirin Enteric Coated 81 MG Tablet PO SCH (08:32)
[2017-12-28] MEDS: *HR* Metformin 500 MG TABLET PO SCH ×2 (08:34→18:42)
[2017-12-28] MEDS: Insulin LISPRO 300 UNITS/3 ML VIAL SQ SCH ×4 (08:34→22:04)
[2017-12-29 05:36] LABS: Basophils % 0.2 %; Eosinophils # 0.4 K/mcL (0.0-0.6); Eosinophils % 8.5 %; Hematocrit 28.7 % (37.5-50.1); Hemoglobin 8.9 g/dL (12.9-16.9); Immature Granulocytes % 0.2 % (0-4); Lymphocytes # 0.7 K/mcL (0.6-4.6); Lymphocytes % 15.6 %; Mean Corpuscular Hemoglobin 28.9 pg (28.0-33.3); Mean Corpuscular Volume 93.2 fL (83.0-100.0); Mean Platelet Volume 8.2 fL (9.4-12.4); Monocytes # 0.6 K/mcL (0.0-1.3); Monocytes % 12.3 %; Platelet Count 220 K/mcL (140-400); Red Blood Count 3.08 M/mcL (4.19-5.50); Red Cell Distribution Width 15.7 % (11.5-14.5); Segmented Neutrophils % 63.2 %
[2017-12-29 05:56] LABS: BUN/Creatinine Ratio 9 (6-26); Blood Urea Nitrogen 7 mg/dL (8-23); Calcium 8.6 mg/dL (8.6-10.3); Carbon Dioxide 31 mEq/L (23-29); Chloride 101 mEq/L (98-107); Glucose 100 mg/dL (70-105); Osmolality,Calculated 280 (280-300); Potassium 4.1 mEq/L (3.5-5.1); Sodium 136 mEq/L (136-145); eGFR For African Americans > 60 (> 60); eGFR For Non-African Americans > 60 (> 60)
[2017-12-29] MEDS: Ascorbic Acid 500 MG TABLET PO SCH (06:10)
[2017-12-29] MEDS: Methyl Salicylate/Menthol 28 GM TUBE TP SCH (08:22)
[2017-12-29] MEDS: Psyllium 1 PACKET POWD.PACK PO SCH (08:23)
[2017-12-29] MEDS: Metoprolol XL (24 HR) Succ 50 MG TAB.ER.24H PO SCH (08:24)
[2017-12-29] MEDS: *HR* Metformin 500 MG TABLET PO SCH ×2 (08:25→17:50)
[2017-12-29] MEDS: *HR* Glimepiride 2 MG TABLET PO SCH (08:25)
[2017-12-29] MEDS: Aspirin Enteric Coated 81 MG Tablet PO SCH (08:25)
[2017-12-29] MEDS: Insulin LISPRO 300 UNITS/3 ML VIAL SQ SCH ×4 (08:26→21:20)
[2017-12-29] MEDS: Gabapentin 400 MG CAPSULE PO SCH ×4 (08:26→21:19)
[2017-12-29] MEDS: Multivit/Ca/Min/Fe/FA 1 TAB TABLET PO SCH (08:26)
[2017-12-29] MEDS: *HR* OxyCODONE/APAP 7.5/325 TABLET PO PRN (12:54)
--- NOTE | 2017-12-29 15:56 | Internal Med Progress Note ---
Date of Encounter: 12/29/17 Time of Encounter: 15:45 - Assessment and plan (1) Status post lumbar spinal fusion Current Visit: Yes Status: Acute Assessment and plan: December 07. Continue therapy interventions. Continue present analgesic regimen. December 08. Will increase Duragesic to 25 g/hour patch. Continue analgesic regimen otherwise as at present. December 22. Continue analgesic and therapy regimen. Anticipate discharge home 08/2017. (2) Anemia Current Visit: Yes Status: Acute Assessment and plan: December 07. Anemia testing showed iron 11, transferrin saturation 4%, transferrin 187, ferritin 167, B12 440, and folate 20.7. Will order oral ferrous sulfate with vitamin C. December 10. Hemoglobin decreased to 8.6 yesterday. Will recheck labs in a.m. December 12. Hemoglobin increased to 9.4. Continue present regimen. December 17. Recheck labs in a.m. December 19. Hemoglobin stable at 9.4. December 22. Will check CBC in a.m. Continue ferrous sulfate and vitamin C. December 23. Hemoglobin slightly improved to 9.7. December 29. Hemoglobin decreased to 8.9. Qualifiers: Anemia type: unspecified type Qualified Code(s): D64.9 - Anemia, unspecified (3) DM type 2 (diabetes mellitus, type 2) Current Visit: Yes Status: Chronic Assessment and plan: December 07. Hemoglobin A1c was 8.7% on 11/25/2017. Continue Glucophage and Accu- Cheks with SSI. December 08. Blood sugars are above desirable range. Will add Amaryl. December 10. Blood sugars improved. Continue Glucophage and Amaryl. December 12. Will increase Amaryl to better control blood sugars. December 14. Blood sugars better controlled. Continue present dose Amaryl and Glucophage December 17. Blood sugars now well controlled. Continue present regimen. December 19. Blood sugars reviewed. Continue present dose Amaryl and Glucophage. December 29. Amaryl dose decreased to 1 mg daily to avoid hypoglycemia. Continue present dose Glucophage. 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 Speech/swallowing therapy evaluation ordered. December 08. Swallowing therapy recommended mechanical soft diet with thin liquids. Qualifiers: Dysphagia type: unspecified Qualified Code(s): R13.10 - Dysphagia, unspecified (5) HTN (hypertension) Current Visit: No Status: Chronic Assessment and plan: December 07. Blood pressure stable. Continue Cozaar, Norvasc, and Toprol. December 09. Blood pressures stable. However because of tachycardia will decrease Cozaar and increase Toprol. Continue Norvasc. December 12. Blood pressure stable to borderline low. Will decrease Norvasc and increase Toprol. December 17. Blood pressure satisfactory but borderline tachycardia persists. Will discontinue Norvasc and increase Toprol. December 19. Tachycardia slightly improved. Continue Toprol and Cozaar. Remain off Norvasc December 22. Tachycardia further improved. Continue Toprol and Cozaar and remain off Norvasc. December 25. Tachycardia remains resolved. Continued Toprol and Cozaar. Qualifiers: Hypertension type: essential hypertension Qualified Code(s): I10 - Essential (primary) hypertension (6) Lacunar infarction Current Visit: Yes Status: Acute Assessment and plan: December 12. MRI 06/21/2017 showed mild bilateral white matter chronic small vessel ischemic changes. Will order speech eval for cognitive intervention assessment. December 14. Will order MMSE. December 17. MMSE score 23/30. December 25. Continue aspirin. - Subjective Interval history: December 07. He has no new complaints. He states his pain has significantly lessened. December 08. He has no new complaints. He states his pain has slightly increased. December 10. He has no new complaints. He does not feel his pain has significantly changed. December 12. He has no new complaints. December 14. He has no new complaints and states he feels better December 17. He has no new complaints. He feels he is making progress in therapy. December 19. He has no new complaints December 22. He has no new complaints and is pleased with his progress. December 23. He states he had a "flu" for a few hours today but now he feels back to his baseline. He did not participate in the afternoon therapy well. He denies pain or dyspnea at present time. December 25. He has no new complaints and feels well. He is eagerly anticipating discharge home 12/30/2017. December 29. He has no new complaints. He is anticipating discharge home tomorrow. - Constitutional Vitals: Temp Pulse Resp BP Pulse Ox 98.5 F 73 16 122/83 96 12/29/17 07:22 12/29/17 07:22 12/29/17 07:22 12/29/17 07:22 12/29/17 07:22 Exam: He is sitting comfortably in a chair at bedside. His affect is bright and cheerful. I reviewed his medications and lab results. Internal Medicine: Result - Labs CBC & Chem 7: 12/29/17 05:08 12/29/17 05:08 Labs: Short CBC 12/29/17 Range/Units 05:08 WBC 4.7 (4.3-11.1) K/mcL Hgb 8.9 L (12.9-16.9) g/dL Hct 28.7 L (37.5-50.1) % Plt Count 220 (140-400) K/mcL Neutrophils # 3.0 (1.6-8.9) K/mcL BMP 12/29/17 05:08 Sodium 136 Potassium 4.1 Chloride 101 Carbon Dioxide 31 H BUN 7 L Creatinine 0.79 Glucose 100 Calcium 8.6 - VTE Documentation of Mechanical Device: Graduated compression elastic hosiery Consult Discharge Plan - Plan Referrals: Cherelle Li [Primary Care Provider] - 1 week
[2017-12-29] MEDS: *HR* FentaNYL PATCH 25 MCG PATCH TD SCH (17:51)
[2017-12-30] MEDS: Ascorbic Acid 500 MG TABLET PO SCH (06:16)
[2017-12-30 07:21] VITALS: BP 112/74
[2017-12-30] MEDS: Psyllium 1 PACKET POWD.PACK PO SCH (08:32)
[2017-12-30] MEDS: *HR* Metformin 500 MG TABLET PO SCH (08:33)
[2017-12-30] MEDS: Multivit/Ca/Min/Fe/FA 1 TAB TABLET PO SCH (08:33)
[2017-12-30] MEDS: Metoprolol XL (24 HR) Succ 50 MG TAB.ER.24H PO SCH (08:34)
[2017-12-30] MEDS: *HR* Glimepiride 2 MG TABLET PO SCH (08:34)
[2017-12-30] MEDS: Aspirin Enteric Coated 81 MG Tablet PO SCH (08:34)
[2017-12-30] MEDS: Gabapentin 400 MG CAPSULE PO SCH (08:34)
[2017-12-30] MEDS: Insulin LISPRO 300 UNITS/3 ML VIAL SQ SCH (08:36)
[2017-12-30] MEDS: *HR* OxyCODONE/APAP 7.5/325 TABLET PO PRN (08:44)
[2017-12-30] MEDS: Methyl Salicylate/Menthol 28 GM TUBE TP SCH (08:47)
--- NOTE | 2017-12-30 11:01 | Discharge Summary ---
Date of Encounter: 12/30/17 Time of Encounter: 10:20 - Discharge Diagnosis (1) Status post lumbar spinal fusion Priority: Primary Status: Acute (2) Anemia Priority: Secondary Status: Acute Qualifiers: Anemia type: unspecified type Qualified Code(s): D64.9 - Anemia, unspecified (3) DM type 2 (diabetes mellitus, type 2) Priority: Secondary Status: Chronic Qualifiers: Diabetes mellitus exterminator insulin use: without exterminator use Diabetes mellitus complication status: without complication Qualified Code(s): E11.9 - Type 2 diabetes mellitus without complications (4) Dysphagia Priority: Secondary Status: Acute Qualifiers: Dysphagia type: unspecified Qualified Code(s): R13.10 - Dysphagia, unspecified (5) HTN (hypertension) Priority: Secondary Status: Chronic Qualifiers: Hypertension type: essential hypertension Qualified Code(s): I10 - Essential (primary) hypertension (6) Lacunar infarction Priority: Secondary Status: Acute Hospital course: Mr. Herrera is a 67 year old male who was transferred to [facility] swing bed after a December 01 hospitalization at [facility] where laminectomy and lumbar interbody fusion L2-L5 was performed. He had confusion and fluctuating blood pressures postoperatively. He was stabilized and admitted to [facility] swing bed for ongoing care needs. Initial orders were written by the discharging physicians at [facility]. I saw him on December 06 and performed a swing bed history and physical. He had physical therapy and occupational therapy evaluations with ongoing interventions. He made satisfactory progress. On December 30 he was stable for discharge home. He will have a Rollator walker for DME. He will have outpatient physical therapy at [place] for ongoing care needs. Anemia testing showed iron 11, transferrin saturation 4%, transferrin 187, ferritin 167, B12 440, and folate 20.7. He was started on ferrous sulfate with vitamin C and these will be continued at discharge. Norvasc was discontinued to lessen edema. Toprol was increased and Cozaar continued. His blood pressure remained satisfactory. A speech/swallowing evaluation was done. It was recommended he have a mechanical soft diet with thin liquids. This was tolerated well. Glucophage was continued. Amaryl was added at low dose and blood sugars remained satisfactory. He continued home dose of Bydureon. MMSE score was 23/30. No specific intervention was started. On December 30 he was discharged home. He will follow with his PCP Dr. Li within 1 week. - Time Spent with Patient Total time spent providing and/or coordinating discharge services: - Discharge Medications Prescriptions: Ascorbic Acid [Vitamin C] 500 mg PO DAILY@0630 #30 tablet Ferrous Sulfate 325 mg PO DAILY@0630 #30 tablet Glimepiride [Amaryl] 1 mg PO 0800 #15 tablet Lidocaine Patch [Lidoderm 5% patch] 1 each TP DAILY #7 adh..patch Metoprolol Succinate 200 mg PO DAILY #30 tab.er.24h Home Medications: Atorvastatin Calcium 80 mg PO HS 05/14/16 [History] Cyclobenzaprine [Flexeril] 10 mg PO TID PRN 05/14/16 [History] Docusate [Colace] 100 mg PO BID PRN 05/14/16 [History] Doxylamine Succinate [Sleep Aid] 25 mg PO HS 05/14/16 [History] Exenatide Microspheres [Bydureon] 2 mg SQ SA 05/14/16 [History] Losartan Potassium [Cozaar] 100 mg PO DAILY 05/14/16 [History] Metformin HCl [Glucophage] 1,000 mg PO BID 05/14/16 [History] Multivitamin [Multi-Day Vitamins] 1 tab PO DAILY 05/14/16 [History] Oxycodone HCl/Acetaminophen [Percocet 7.5-325 mg Tablet] 1 tab PO Q6H PRN [History] Psyllium Husk [Fiber] 0.52 gm PO DAILY 05/14/16 [History] Vit C/Vit E/Lutein/Min/Dunlo-3 [Ocuvite Softgel] 1 tab PO DAILY 05/14/16 [ History] Amitriptyline [Elavil] 25 mg PO HS 12/01/17 [History] Calcium Carbonate [Calcium] 1,200 mg PO DAILY 12/01/17 [History] Gabapentin [Neurontin] 800 mg PO TID 12/01/17 [History] Dunlo-3/Dha/Epa/Fish Oil [Fish Oil 1,000 mg Softgel] 1 cap PO DAILY 12/01/17 [ History] OxyCODONE/APAP 7.5/325 [Percocet 7.5/325 MG] 1 each PO Q6HR PRN 7 Days #28 tablet 12/04/17 [Rx] Ascorbic Acid [Vitamin C] 500 mg PO DAILY@0630 #30 tablet 12/30/17 [Rx] Aspirin Enteric Coated [Aspirin EC] 81 mg PO DAILY tablet. 12/30/17 [Rx] Ferrous Sulfate 325 mg PO DAILY@0630 #30 tablet 12/30/17 [Rx] Glimepiride [Amaryl] 1 mg PO 0800 #15 tablet 12/30/17 [Rx] Lidocaine Patch [Lidoderm 5% patch] 1 each TP DAILY #7 adh..patch 12/30/17 [Rx] Methyl Salicylate/Menthol [Bengay] 1 appl TP DAILY tube 12/30/17 [Rx] Metoprolol Succinate 200 mg PO DAILY #30 tab.er.24h 12/30/17 [Rx] Allergies/Adverse Reactions: 3 Allergy/AdvReac Type Severity Reaction Status Date / Time No Known Allergies Allergy Verified 12/01/17 07:57 Date of admission: 12/05/17 14:06 Primary care physician: Cherelle Li Consults: 12/05/17 15:46 Consult to Occupational Therapy [CONS] Routine Comment: Eval and treat to POC Reason for Consult: Eval and treat to POC Does patient have active BEDREST order?: No Is patient medically & hemodynamically stable?: Yes Patient assessed for mobility or mobilized this visit?: No Consult to Physical Therapy [CONS] Routine Comment: evaluate and implement POC Reason for Consult: evaluate/emplement POC Does patient have active BEDREST order?: No Is patient medically & hemodynamically stable?: Yes Patient assessed for mobility or mobilized this visit?: No Consult to Venipuncturist [CONS] Routine Reason for SW Consult: DC planning 12/06/17 16:12 Consult to Speech Therapy [CONS] Routine Comment: Evaluate, develop and implement POC Reason for Consult: Dysphagia Call Completed: No 12/12/17 16:04 Consult to Speech Therapy [CONS] Routine Comment: Evaluate, develop and implement POC Reason for Consult: Cognition evaluation and intervention Call Completed: No - Constitutional Vitals: Temp Pulse Resp BP Pulse Ox 98.4 F 86 17 112/74 96 12/30/17 07:12 12/30/17 07:12 12/30/17 07:12 12/30/17 07:12 12/30/17 07:12 - Patient Status Disposition: Home, Self-Care Overall status at discharge: patient is progressing back to baseline - Discharge Instructions Follow Up With: Cherelle Li [Primary Care Provider] - 1 week - Diet and Activity Activity: as per physical therapy Diet: advance to your usual diet - VTE Documentation of Mechanical Device: Graduated compression elastic hosiery
== END 2017-12-30 13:20 | disposition home or self-care (01) | DRG 949 ==
LOC: INPPIK 12-05 14:06
PROVIDERS: ADMIT Internal Medicine; ATTEND Internal Medicine